=== PATIENT | female | born 1965 | race Caucasian/White ===

== ENCOUNTER 2020-07-10 18:38 | Emergency (ER) | payer SELFPAY ==
--- NOTE | ~2020-07-10 | CT_ITS ---
EXAMINATION: CT lumbar spine wo con DATE: 07/10/2020 23:29 INDICATION: Low back pain TECHNIQUE: Computed tomography (CT) of the lumbar spine was performed without intravenous contrast. A utomated exposure control and iterative reconstruction technique were employed. Exam dose: 915.37 mG y-cm total exam DLP. COMPARISON: None FINDINGS: The left kidney is absent the left renal fossa; history of left nephrectomy with probable l eft adrenalectomy. A small pinpoint mid right renal calculus is noted. The appendix appears normal. There is diverticulosis of the colon. There is a transitional first sacral vertebra. No fracture or bone destruction of the lumbar spine. Lumbar and lumbosacral interspaces appear relati vely well preserved. There is mild degenerative spurring of the lower thoracic spine. There is degenerative change at the apophyseal joints at L5-S1 and S1-S2 but no spondylolysis or spon dylolisthesis.. IMPRESSION: Transitional first sacral vertebra Mild degenerative change of the lower thoracic spine and the apophyseal joints of L5-S1 and S2 Reviewed, dictated and finalized at [facility]. Reviewed, dictated and finalized at [facility].
[2020-07-10 19:11] VITALS: BP 110/77; PULSE 68; RESP 16; TEMP 36.3; O2SAT 96
[2020-07-10 19:34] LABS: Add Urine Microscopic? NO; Appearance Urine Clear (Clear); Bilirubin Urine Negative (Negative); Blood Urine Negative (Negative); Color Urine Straw (Yellow); Glucose Urine UA Negative (Negative); Ketones Urine Negative (Negative); Leukocyte Esterase Ur Negative LEU/UL (Negative); Nitrate Urine Negative (Negative); Protein Urine Negative (Negative); Specific Grav Ur 1.005 (1.001-1.035); Urobilinogen Urine Negative mg/dL (<2.0)
[2020-07-10 19:38] LABS: RBC Urine 0-2 /hpf (0-2); Squamous Epithelial Cell Urine Rare /hpf (Few); WBC Urine 0-3 /hpf
[2020-07-10 21:37] VITALS: BP 125/89; PULSE 75; RESP 18; TEMP 36.6; O2SAT 97
[2020-07-10 21:43] VITALS: BP 125/89; PULSE 72; RESP 18; TEMP 36.6; O2SAT 97
--- NOTE | 2020-07-10 21:45 | PC.NURSE ---
Pt presents to ED with complaints of right flank pain that is rated 7/10 at this time. Pt denies tx pain captain cannery tender. Pt states she has hx of left nephrectomy due to CA. Pt states pain has been persistent for the last week. States I came in tonight because I was in the shower about to shave my legs and when I bent over I thought I was going to lose my mind . Denies urinary discomfort. Pt alert and oriented x4 and breathing is even and unlabored. EDMD presented to bedside. Call button and personal items within reach. Pt advised to press call button for assistance.
--- NOTE | 2020-07-10 21:46 | ED.BACK ---
HPI - Back Pain/Injury General Chief Complaint: Back Pain/Injury Stated Complaint: back pain Time Seen by Provider: 07/10/20 21:40 History of Present Illness HPI Narrative: Low back pain for the past week. Today while in the shower she bent over to shave her legs and when she stood back up the pain became severe. It radiates down the left leg. No weakness, numbness, dysuria, hematuria, incontinence, fever. She has a history of renal cancer and only has 1 kidney. Related Data Home Medications Medication Instructions Recorded Confirmed atorvastatin 10 mg tablet 10 mg PO DAILY 04/02/19 04/02/19 pediatric multivitamin 1 tablet PO DAILY 04/02/19 04/02/19 Allergies Allergy/AdvReac Type Severity Reaction Status Date / Time Sulfa (Sulfonamide Allergy Unknown Unknown Verified 04/02/19 11:12 Antibiotics) Review of Systems Review of Systems: All systems reviewed & are unremarkable except as noted in HPI and below Constitutional: Constitutional: Denies chills, Denies fever(s) and Denies weakness Eyes: Eyes: Reports no additional eye complaints ENT: Reports system reviewed and no additional complaints, except as documented Cardiovascular: Cardiovascular: Denies chest pain Respiratory: Respiratory: Denies dyspnea Gastrointestinal: Gastrointestinal: Denies abdominal pain, Reports nausea and Denies vomiting Genitourinary: Genitourinary: Denies hematuria, Denies nocturia and Denies dysuria Musculoskeletal: Musculoskeletal: Reports back pain Neurologic: Denies dizziness, Denies numbness and Denies weakness PMFSH Past Medical History Medical History GERD (gastroesophageal reflux disease) Hyperlipidemia due to dietary fat intake Renal cancer Surgical History Surgical History H/O: hysterectomy Family History Family History Mother Hypertension Family history of diabetes mellitus in first degree relative Diabetes mellitus Father Family history of hypercholesterolemia Grandparent Family history of alcoholism Sibling Family history of liver disease Social History Social History Smoking status: Never smoker Alcohol intake: current Gender identity (if verbalized by the patient): Female Exam Const: General: healthy appearing, no acute distress and alert Orientation/consciousness: patient oriented x3 HENMT: Head: normal to inspection Neck: Neck: normal visual inspection Resp: Effort & Inspection: normal respiratory effort Auscultation: clear to auscultation bilaterally Cardio: Rate: regular rate Rhythm: regular rhythm GI: GI Palp: Yes Soft to palpation and No Tenderness to palpation present (GI) Back/Spine/Pelvis: Other: full ROM Neuro: General: patient oriented x3, moves all extremities and no focal motor deficits Speech: normal speech Extrem: General: normal to inspection and no edema Course Vital Signs Vital signs: Vital Signs Temperature 36.3 C L 07/10/20 19:11 Pulse Rate 68 07/10/20 19:11 Respiratory Rate 16 07/10/20 19:11 Blood Pressure 110/77 07/10/20 19:11 Pulse Oximetry 96 07/10/20 19:11 Temperature 36.7 C 07/11/20 00:06 Pulse Rate 57 L 07/11/20 00:06 Respiratory Rate 13 07/11/20 00:06 Blood Pressure 119/87 07/11/20 00:06 Pulse Oximetry 98 07/11/20 00:06 MDM - Back Pain/Injury MDM Narrative Medical decision making narrative: Given cancer history she is at increased risk of serious pathology. CT does not show fracture or any other worrisome findings. Patient declining most medications. I will prescribe a mild muscle relaxer. Differential Diagnosis Differential diagnosis: Likely lumbar radiculopathy, sciatica, strain of lumbar region and pyelonephritis Medical Records Attestation: I reviewed the patient
[2020-07-10] MEDS: ACETAMINOPHEN 500 MG TABLET 1000 MG PO (22:45)
--- NOTE | 2020-07-10 22:45 | PC.NURSE ---
pt to ct via cart and is now back in room resting on cart in its lowest position with call button and personal items within reach.
[2020-07-11] MEDS: CYCLOBENZAPRINE HCL 10 MG TABLET PO (00:01)
--- NOTE | 2020-07-11 00:02 | PC.NURSE ---
Pt to ct via cart.
--- NOTE | 2020-07-11 00:03 | PC.NURSE ---
Pt resting on cart in its lowest position with call button and personal items within reach. Pt has no complaints or concerns at this time and states pain has improved. Pt remains alert and oriented x4 and breathing is even and unlabored. Call button and personal items within reach.
[2020-07-11 00:04] VITALS: BP 119/87; PULSE 57; RESP 13; TEMP 36.6; O2SAT 98
[2020-07-11 00:06] VITALS: BP 119/87; PULSE 57; RESP 13; TEMP 36.7; O2SAT 98
== END 2020-07-11 00:23 | disposition home or self-care (01) ==
PROVIDERS: Emergency Medicine; Emergency Provider Emergency Medicine; PCP Internal Medicine
DX: S39.012A Strain of muscle, fascia and tendon of lower back, initial encounter (principal); Z90.5 Acquired absence of kidney; K21.9 Gastro-esophageal reflux disease without esophagitis; E78.5 Hyperlipidemia, unspecified; Z85.528 Personal history of other malignant neoplasm of kidney; X50.9XXA Other and unspecified overexertion or strenuous movements or postures, initial encounter
CPT/HCPCS: 72131; 81003; 99284; A9270; J3360

== ENCOUNTER → 2022-06-01 07:57 | Outpatient (CLI) | payer OTHER, SELFPAY ==
--- NOTE | ~2022-06-01 | MMUS_ITS ---
EXAMINATION: MM diagnostic kimberly BI w tunde, US breast RT limited HISTORY: Palpable lump in the upper inner quadrant of the right breast TECHNIQUE: Craniocaudal, mediolateral, and mediolateral oblique 3-D tomosynthesis images of the az ts were performed and synthetic 2-D images were generated. CAD analysis was submitted and interpreted . High resolution limited right breast ultrasound was performed. COMPARISON: 08/08/2012, 08/01/2012 BREAST PARENCHYMAL COMPOSITION: There are scattered areas of fibroglandular density. FINDINGS: MAMMOGRAPHIC FINDINGS: No suspicious mass, calcification, or architectural distortion are identified in either breast to sug gest malignancy. There has been no suspicious interval change. No mammographic correlate is identifie d for the reported palpable abnormality of concern of the right breast. ULTRASOUND: There is no evidence of focal abnormal solid or cystic mass in the vicinity of the reported palpable abnormality of the right breast. IMPRESSION: 1. No specific mammographic or sonographic correlate is identified for the reported palpable abnormal ity of concern in the right breast. Further evaluation at this time should be based on clinical asses sment. Continued follow-up physical examination is recommended. 2. Recommend routine screening mammography in one year. BI-RADS Category 1: Negative Reviewed, dictated and finalized at [facility]. ANICAL FITTER IMPRESSION: 1. No specific mammographic or sonographic correlate is identified for the repo rted palpable abnormality of concern in the right breast. Further evaluation at this time should be based on clinical assessment. Continued follow-up physical examination is recommended. 2. Recommend routine screening mammography in one year. BI-RADS Category 1: Negative
== END ==
PROVIDERS: PCP Internal Medicine; Visit Provider Nurse Practitioner
DX: N63.12 Unspecified lump in the right breast, upper inner quadrant (principal)
CPT/HCPCS: 76642; 77062; 77066; G0279

== ENCOUNTER 2023-03-02 08:37 | Emergency (ER) | payer SELFPAY ==
[2023-03-02] VITALS (15 sets, daily range): BP systolic 105–122; BP diastolic 64–82; PULSE 50–75; RESP 10–23; TEMP 36.8; O2SAT 96–100
--- NOTE | ~2023-03-02 | XR_ITS ---
EXAMINATION: XR chest 1V portable 03/02/2023 09:07 INDICATION: Sharp chest pain PROCEDURE: 2 view chest COMPARISON: 06/04/2018 FINDINGS: The lungs are clear. The cardiomediastinal silhouette is within normal limits. There are no pleural effusions. There is no pneumothorax suspected. IMPRESSION: 1: NO ACUTE CARDIOPULMONARY DISEASE. Reviewed, dictated and finalized at location [facility]. INED MINISTER
--- NOTE | 2023-03-02 08:48 | ECG_ITS ---
Measurements Intervals [place] Rate: 63 P: -13 RI: 142 QRS: 28 QRSD: 96 T: 21 QT: 396 QTc: 408 Interpretive Statements SINUS RHYTHM WITH OCCASIONAL VENTRICULAR PREMATURE COMPLEXES COMPARED TO ECG 06/04/2018 19:11:07 NO SIGNIFICANT CHANGES Electronically Signed On 03-02-2023 18:54:08 HOT PLATE PRESS OPERATOR by Pilar Romero M.D.
--- NOTE | 2023-03-02 08:51 | ED.CHESTPAIN ---
HPI - Chest Pain General Chief Complaint: Chest Pain Stated Complaint: CP Time Seen by Provider: 03/02/23 08:41 History of Present Illness HPI narrative: 57-year-old female presenting ED the for evaluation of epigastric pain. The patient states that she has had some heart palpitations over the last few days. Patient woke up this morning she had onset epigastric pain that radiated to her left upper quadrant. Patient reports that the pain did radiate to her left arm. Patient called EMS for this pain. In route she was treated with Zofran and aspirin. Patient reports that the pain is significantly improved upon arrival to the ED. patient gestures at her epigastrium as the site of the pain. Patient denies any current chest pain or shortness of breath. Patient denies any prior history of hypertension, high cholesterol or diabetes. Patient states she has never had a heart attack and does not recall having a stress test. Related Data Allergies Allergy/AdvReac Type Severity Reaction Status Date / Time Sulfa (Sulfonamide Allergy Unknown Unknown Verified 03/02/23 08:48 Antibiotics) Review of Systems Review of Systems: All systems reviewed & are unremarkable except as noted in HPI and below PMFSH Past Medical History Medical History (Updated 03/02/23 @ 12:56 by Keith Davis MD) GERD (gastroesophageal reflux disease) Hyperlipidemia due to dietary fat intake Renal cancer Urinary tract infection Surgical History Surgical History H/O kidney removal H/O: hysterectomy Family History Family History Mother Hypertension Family history of diabetes mellitus in first degree relative Diabetes mellitus Father Family history of hypercholesterolemia Grandparent Family history of alcoholism Sibling Family history of liver disease Social History Social History (Updated 06/09/22 @ 11:07 by Jennifer Ocampo MA) Smoking status: Never smoker Alcohol intake: current Lack of Transportation: No Lack of Food: Never True Current Housing: I Have Housing Concerned About Future Housing: No Difficulty Paying Gas/Electric Bills: No Difficulty Paying for Meds: No Currently Unemployed: No Education: High School Diploma/GED Difficulty w/ Childcare or Family Care: No Gender identity (if verbalized by the patient): Female Exam Narrative: APPEARANCE: Well appearing, no pain, no distress, well-nourished. HEAD: normocephalic, atraumatic. EYES: PERRLA/EOMI, conjunctivae clear. NOSE: Normal no drainage EARS:TMS clear with good light reflex. THROAT: Pharynx clear, no exudate. NECK: Supple. No adenopathy, no masses. RESPIRATORY: Airway patent, respirations nonlabored. Clear to auscultation bilaterally, no rales, rhonchi, wheezing. CARDIOVASCULAR: Regular rate and rhythm without murmurs rubs or gallops. ABDOMINAL: soft, nondistended, normal bowel sounds, some epigastric tenderness to palpation MUSCULOSKELETAL: Moves all extremities. Strength/ROM intact, No edema, No calf tenderness. NEURO: Alert. Cranial nerves II through XII intact. Grossly intact SKIN: Warm, dry. Normal Color Course Course Emergency Course: 57-year-old female presenting to the ED for evaluation of epigastric and chest pain. patient is afebrile with no leukocytosis and a stable hemoglobin. Patient had a normal D-dimer and negative serial troponins. Lipase was not elevated. Chest x-ray shows no acute cardiopulmonary abnormality. Serial EKG showed no evidence of acute STEMI. patient reports that her symptoms were resolved after the GI cocktail. Patient was encouraged to have close follow-up with GI along with her primary care physician for additional outpatient cardiac testing. All questions and concerns were addressed patient was well-appearing at time of discharge. Suspected GI etiology for ACS. Vital Signs Vital signs:
[2023-03-02 09:03] LABS: Basophils Percent Auto 0.5 % (0.2-1.2); Eosinophils Absolute Auto 0.1 K/mm3 (0-0.3); Eosinophils Percent Auto 1.8 % (0-4.4); Hematocrit 42.3 % (37.0-47.0); Hemoglobin 14.3 g/dL (12.0-15.0); Immature Granulocyte Absolute 0.02 K/mm3 (0.00-0.031); Immature Granulocyte Percent A 0.3 % (0-0.5); Lymphocytes Absolute Auto 1.94 K/mm3 (0.9-3.2); Lymphocytes Percent Auto 29.8 % (18.3-44.2); Mean Corpuscular HGB Conc 33.8 g/dl (32-36); Mean Corpuscular Hemoglobin 31.7 pg (26-34); Mean Corpuscular Volume 93.8 fl (80-100); Mean Platelet Volume 9.4 fl (7.4-10.4); Monocytes Absolute Auto 0.5 K/mm3 (0.1-0.6); Monocytes Percent Auto 7.4 % (2.6-8.5); Neutrophils Absolute Auto 3.9 K/mm3 (1.3-6.7); Neutrophils Percent Auto 60.2 % (45.5-73.1); Platelet Count Result 224 k/mm3 (150-375); Red Blood Count 4.51 M/mm3 (4.2-5.4); Red Cell Distribution Width 12.5 % (11.5-14.5); White Blood Count 6.5 K/mm3 (4.5-10.0)
[2023-03-02 09:11] LABS: Alanine Aminotransferase 20 U/L (6-35); Albumin Level 4.4 g/dL (3.5-5.1); Alkaline Phosphatase 71 U/L (38-126); Anion Gap 7 mmol/L (8-16); Aspartate Amino Transferase 28 U/L (14-36); Bilirubin,Total 1.1 mg/dL (0.2-1.3); Blood Urea Nitrogen 22 mg/dL (7-17); Calcium 11.1 mg/dL (8.4-10.2); Carbon Dioxide 22 mmol/L (22-30); Chloride 107 mmol/L (98-107); Estimated CRCL calculation 70 ml/min; Estimated Glomerular Filt Rate > 60; Glucose 104 mg/dL (65-110); Lipase 65 U/L (23-300); Potassium 4.1 mmol/L (3.4-5.0); Sodium 136 mmol/L (137-145)
[2023-03-02 09:17] LABS: INR 0.9; Prothrombin Time 12.5 Seconds (11.1-14.7)
[2023-03-02 09:18] LABS: Partial Thromboplastin Time 27.1 SECONDS (22.3-36.8)
[2023-03-02 09:23] LABS: Troponin I < 0.012 ng/mL (0.000-0.034)
[2023-03-02 09:31] LABS: D Dimer 0.47 ug/mL (<0.48)
[2023-03-02] MEDS: BELLADONNA ALK/PHENOB ELIX 10 ML, MAG HYDROX/ALUMINUM HYD/SIMETH 30 ML, LIDOCAINE HCL 2... PO (10:00)
--- NOTE | 2023-03-02 12:05 | ECG_ITS ---
Measurements Intervals [place] Rate: 56 P: -11 [place]: 149 QRS: 21 QRSD: 94 T: 24 QT: 406 QTc: 393 Interpretive Statements SINUS BRADYCARDIA WITH SINUS ARRHYTHMIA COMPARED TO ECG 03/02/2023 08:44:28 SINUS BRADYCARDIA NOW PRESENT SINUS ARRHYTHMIA NOW PRESENT Electronically Signed On 03-02-2023 19:15:46 PETROLEUM REFINERY WORKER by Pilar Romero M.D.
[2023-03-02 12:36] LABS: Troponin I < 0.012 ng/mL (0.000-0.034)
== END 2023-03-02 13:17 | disposition home or self-care (01) ==
PROVIDERS: Emergency Provider Emergency Medicine; PCP Internal Medicine
DX: R10.13 Epigastric pain (principal); J32.9 Chronic sinusitis, unspecified; E78.5 Hyperlipidemia, unspecified; K21.9 Gastro-esophageal reflux disease without esophagitis; Z85.528 Personal history of other malignant neoplasm of kidney; Z87.440 Personal history of urinary (tract) infections; Z90.710 Acquired absence of both cervix and uterus; Z90.5 Acquired absence of kidney; I49.3 Ventricular premature depolarization
CPT/HCPCS: 36415; 71045; 80053; 83690; 84484; 85025; 85380; 85610; 85730; 93005; 99284; A9270

== ENCOUNTER 2023-05-24 08:06 | Outpatient (CLI) | payer SELFPAY ==
--- NOTE | ~2023-05-24 | XR_ITS ---
Right Knee Technique: AP, lateral, and sunrise views were obtained. Clinical History: Pain Findings: No fracture or dislocation is seen. There is medial joint line osteophyte formation. There is minimal spurring at the lateral joint line and patella. Soft tissues are unremarkable. No joint ef fusion is seen. Impression: Mild tricompartment degenerative change, as detailed above, worst in the medial compartment. Reviewed, dictated and finalized at location [facility]. ER ON Impression: Mild tricompartment degenerative change, as detailed above, worst in the medial compartment.
--- NOTE | ~2023-05-24 | XR_ITS ---
Lumbosacral Spine: AP and lateral views Clinical History: Pain Findings: The normal lordotic curve is maintained. The vertebral bodies and posterior elements are i ntact. The intervertebral disc spaces are preserved. There are extensive facet joint degenerative ch anges, worst at L4-L5 and L5-S1. The sacroiliac joints are normally outlined. Impression: Extensive facet arthropathy, worst at L4-L5 and L5-S1. Reviewed, dictated and finalized at location . STICS MANAGER Impression: Extensive facet arthropathy, worst at L4-L5 and L5-S1.
[2023-05-24 09:31] LABS: Basophils Percent Auto 0.5 % (0.2-1.2); Eosinophils Absolute Auto 0.2 K/mm3 (0-0.3); Eosinophils Percent Auto 3.1 % (0-4.4); Hematocrit 42.6 % (37.0-47.0); Immature Granulocyte Absolute 0.03 K/mm3 (0.00-0.031); Immature Granulocyte Percent A 0.4 % (0-0.5); Lymphocytes Absolute Auto 2.54 K/mm3 (0.9-3.2); Lymphocytes Percent Auto 33.9 % (18.3-44.2); Mean Corpuscular HGB Conc 32.9 g/dl (32-36); Mean Corpuscular Hemoglobin 30.9 pg (26-34); Mean Platelet Volume 9.8 fl (7.4-10.4); Monocytes Absolute Auto 0.5 K/mm3 (0.1-0.6); Monocytes Percent Auto 6.1 % (2.6-8.5); Neutrophils Absolute Auto 4.2 K/mm3 (1.3-6.7); Platelet Count Result 243 k/mm3 (150-375); Red Blood Count 4.53 M/mm3 (4.2-5.4); Red Cell Distribution Width 12.7 % (11.5-14.5); White Blood Count 7.5 K/mm3 (4.5-10.0)
[2023-05-24 09:43] LABS: Alanine Aminotransferase 18 U/L (6-35); Albumin Level 4.3 g/dL (3.5-5.1); Alkaline Phosphatase 74 U/L (38-126); Anion Gap 2 mmol/L (8-16); Aspartate Amino Transferase 25 U/L (14-36); Bilirubin,Total 0.7 mg/dL (0.2-1.3); Blood Urea Nitrogen 22 mg/dL (7-17); Calcium 10.8 mg/dL (8.4-10.2); Carbon Dioxide 26 mmol/L (22-30); Chloride 108 mmol/L (98-107); Cholesterol 241 mg/dL (0-200); Estimated Glomerular Filt Rate > 60; Glucose 96 mg/dL (65-110); HDL Direct 55 mg/dL; Potassium 4.4 mmol/L (3.4-5.0); Sodium 136 mmol/L (137-145); Triglycerides 196 mg/dL (<150)
[2023-05-24 09:54] LABS: LDL Cholesterol Direct 122 mg/dL
[2023-05-24 13:38] LABS: Vitamin D 25 Hydroxy 33.4 ng/mL
[2023-05-26 20:54] LABS: Ionized Calcium 5.6 mg/dL (4.7-5.5)
== END 2023-05-24 08:07 | disposition home or self-care (01) ==
PROVIDERS: PCP Internal Medicine; Visit Provider Clinical Nurse Specialist
DX: M47.816 Spondylosis without myelopathy or radiculopathy, lumbar region (principal); M47.817 Spondylosis without myelopathy or radiculopathy, lumbosacral region; M17.11 Unilateral primary osteoarthritis, right knee; E78.49 Other hyperlipidemia; E83.52 Hypercalcemia; F41.9 Anxiety disorder, unspecified; Z13.228 Encounter for screening for other metabolic disorders
CPT/HCPCS: 36415; 72100; 73562; 80053; 80061; 82306; 82330; 83970; 84443; 85025

== ENCOUNTER 2023-05-30 11:14 | Emergency (ER) | payer SELFPAY ==
--- NOTE | ~2023-05-30 | XR_ITS ---
EXAMINATION: XR shoulder RT min 2V INDICATION: Right shoulder pain TECHNIQUE: Four views of the right shoulder are submitted. COMPARISON: 04/02/2019 FINDINGS: Normal alignment. No fracture. Glenohumeral and acromioclavicular joint spaces are normal. Soft tissues are unremarkable. IMPRESSION: 1. No acute osseous abnormality. Reviewed, dictated and finalized at location [facility]. CTOR SERVICE
[2023-05-30 11:29] VITALS: BP 126/74; PULSE 55; RESP 20; TEMP 36.1; O2SAT 100
--- NOTE | 2023-05-30 13:49 | ED.UPPEXIN ---
HPI - Extremity Injury (Upper) General Chief Complaint: Extremity Injury, Upper Stated Complaint: fall, arm pain Time Seen by Provider: 05/30/23 12:05 History of Present Illness HPI narrative: 57-year-old female presenting after a fall. Patient states that she tripped on a ledge on a sidewalk and fell to her right side. She landed directly on her right shoulder. States that she had immediate pain and she is unable to lift the right arm. Can not abduct secondary to pain. Denies elbow or wrist pain. Can use her hand normally. No further complaints or injuries. Related Data Allergies Allergy/AdvReac Type Severity Reaction Status Date / Time Sulfa (Sulfonamide Allergy Unknown Unknown Verified 05/30/23 11:15 Antibiotics) Review of Systems Review of Systems: All systems reviewed & are unremarkable except as noted in HPI and below PMFSH Past Medical History Medical History GERD (gastroesophageal reflux disease) Hyperlipidemia due to dietary fat intake Renal cancer Urinary tract infection Surgical History Surgical History H/O kidney removal H/O: hysterectomy Family History Family History Mother Hypertension Family history of diabetes mellitus in first degree relative Diabetes mellitus Father Family history of hypercholesterolemia Grandparent Family history of alcoholism Sibling Family history of liver disease Social History Social History Smoking status: Never smoker Alcohol intake: current Substance use type: does not use Lack of Transportation: No Lack of Food: Never True Current Housing: I Have Housing Concerned About Future Housing: No Difficulty Paying Gas/Electric Bills: No Difficulty Paying for Meds: No Currently Unemployed: No Education: High School Diploma/GED Difficulty w/ Childcare or Family Care: No Gender identity (if verbalized by the patient): Female Exam Narrative: GENERAL: Well-appearing, in no acute distress, pleasant cooperative HEAD: Normocephalic, atraumatic. EYES: PERRLA and EOMI. ENT: Grossly unremarkable NECK: Supple. CHEST: No respiratory distress. HEART: Regular rate and rhythm EXTREMITIES: unable to abduct R shoulder 2/2 pain; tender especially anterior R shoulder; distal ROM intact, pulses intact SKIN: Warm, dry, no rash. NEURO: No focal deficits. Alert and oriented x3. PSYCH: Normal mood and affect. Course Vital Signs Vital signs: Vital Signs Temperature 97.0 F L 05/30/23 11:29 Pulse Rate 55 L 05/30/23 11:29 Respiratory Rate 20 05/30/23 11:29 Blood Pressure 126/74 05/30/23 11:29 Pulse Oximetry 100 05/30/23 11:29 Oxygen Delivery Room Air 05/30/23 11:29 Temperature 97.0 F L 05/30/23 11:29 Pulse Rate 55 L 05/30/23 11:29 Respiratory Rate 20 05/30/23 11:29 Blood Pressure 126/74 05/30/23 11:29 Pulse Oximetry 100 05/30/23 11:29 Oxygen Delivery Room Air 05/30/23 11:29 MDM - Extremity Injury (Upper) MDM Narrative Medical decision making narrative: 57-year-old female presenting with right shoulder pain after a fall. Vital stable. Exam remarkable for the above. X-ray show no acute osseous abnormalities. Suspect ligamentous injury given the limited ROM of the right shoulder secondary to pain. Tylenol for pain, will provide sling and orthopedic follow-up. Also recommend PCP follow-up. Appropriate return precautions given. Patient is agreeable this plan. Discharged in stable condition. Differential Diagnosis Differential diagnosis: Likely dislocation of shoulder, fracture of humerus, fracture of clavicle and other (Rotator cuff injury) Medical Records Attestation: I reviewed the patient's medical records. Imaging Data Radiologist's impression: ITS Impr
[2023-05-30] MEDS: ACETAMINOPHEN 500 MG TABLET 1000 MG PO (13:59)
== END 2023-05-30 14:01 | disposition home or self-care (01) ==
PROVIDERS: Emergency Provider Emergency Medicine
DX: S43.401A Unspecified sprain of right shoulder joint, initial encounter (principal); E78.5 Hyperlipidemia, unspecified; K21.9 Gastro-esophageal reflux disease without esophagitis; Z87.440 Personal history of urinary (tract) infections; Z85.528 Personal history of other malignant neoplasm of kidney; Z90.5 Acquired absence of kidney; Z90.710 Acquired absence of both cervix and uterus; W01.0XXA Fall on same level from slipping, tripping and stumbling without subsequent striking against object, initial encounter
CPT/HCPCS: 73030; 99283; A4565; A9270

== ENCOUNTER 2024-09-01 09:22 | Emergency (ER) | payer SELFPAY ==
[2024-09-01] VITALS (14 sets, daily range): BP systolic 117–150; BP diastolic 67–94; PULSE 55–67; RESP 12–19; TEMP 36.2; O2SAT 95–99
--- NOTE | ~2024-09-01 | CT_ITS ---
CT of the Abdomen and Pelvis: Indication: Abdominal pain Technique: 2.5 mm axial scans were obtained through the abdomen and pelvis following intravenous adm inistration of 100 cc of Omnipaque 350. Dose reduction technique was used on this scan by utilizing a utomated exposure control and iterative reconstruction technique. The dose-length product (DLP) was 7 59.03 mGy-cm. Findings: Scans through the lung bases are unremarkable. The liver, spleen, pancreas, gallbladder, right adrenal gland, and right kidney are within normal ramos its. Status post left nephrectomy, possible left adrenalectomy. No evidence of aortic aneurysm. No l ymphadenopathy. No bowel obstruction or bowel wall thickening. There is no evidence to suggest acute appendicitis. Fo es umbilical hernia contains a loop of small bowel. Images through the pelvis were performed. Urinary bladder unremarkable. Status post hysterectomy. No pelvic mass seen. No ascites. Impression: No acute abnormality. No evidence for recurrent malignancy or metastatic disease. Focal umbilical hernia contains a loop of small bowel. Status post left nephrectomy, suspected left adrenalectomy, and hysterectomy. Reviewed, dictated and finalized at location . Impression: No acute abnormality. No evidence for recurrent malignancy or metastatic diseas e. Focal umbilical hernia contains a loop of small bowel. Status post left nephrectomy, suspected left adrenalectomy, and hysterectomy.
--- NOTE | 2024-09-01 09:27 | ECG_ITS ---
Test Date: 2024-09-01 09:36:24 Measurements Intervals [place] Rate: 59 P: 4 NM: 155 QRS: 26 QRSD: 97 T: 18 QT: 416 QTc: 414 Interpretive Statements SINUS BRADYCARDIA BASELINE ARTIFACT- I, II, III, AVR, AVL, AVF BORDERLINE ECG No previous ECG available for comparison Electronically Signed On 09-01-2024 12:34:33 CDT by Obinna Asher D.O.
--- OUTSIDE RECORDS SUMMARY | 2024-09-01 09:29 | XMS_ITS | Data Portability ---
Author Organization [facility] [place] Address [address] [place] [address] [place] [address] Care Team Providers Care Machinist Outside Name Role Phone NELLIEEMILY SIDHU Primary Care Provider [phone] Assessment No assessment recorded. Plan of Treatment Reminders Order Date Submit Date Provider Last Modified By Organization Details Last Modified Time Details Appointments None recorded . Lab None recorded . Referral None recorded . Procedures None recorded . Surgeries None recorded . Imaging MAMMO, diagnost ic, digital, bilatera l 2022 023 [facility], [address], [place], [address], 11:10:22 US, breast, unilater al, complete 2022 023 vschroedter [facility], [address], [place], [address], 3 13:00:21 Medication Orders None recorded . Patient TargetsNo targets recorded. Patient InstructionsNo instructions recorded. Reason for Referral None Reported. Results Created Date Observation Date Name Description Value Unit Range Abnormal Flag Note LastModifiedBy Organization Detail LastModifiedTime 06/02/1906/01/2022 MAMMO , diagn ostic , digit al, bilat eral No observ ation record ed. [email or web address] [facility] [address], [place], [address], 06/06/2022 11:10:22 Result Notes None recorded. Procedures Surgical History Date Name Laterality Status Provider Name and Address Organization Details Recorded Time Partial Hysterectomy completed Anamika Martinez [facility] 05/12/2022 09:40:32 kidney excision completed Dasia garcía, [facility] [address], [place], [address], [facility] 05/12/2022 10:12:02 Imaging Results None recorded. Procedure Notes None recorded. Medical Equipment None Reported. Allergies Allergen ID Allergen Name Allergen Category Reaction Reaction Severity Criticality Documentation Date Start Date Code Code System Note Provider Name and Address Organization Details Recorded Time Substance with sulfonami de structure and antibacte rial mechanism of action (substanc e) medicatio n Not available Not available Not available 05/12/2022 [id number] SNOMED Anamika lew [facility] 3 09:40:48 Medications Name Sig Start Date Stop Date Status Note LastModified by Organization Details LastModified Time amoxicillin 875 mg-potassium clavulanate 125 mg tablet TAKE 1 TABLET BY MOUTH EVERY 12 HOURS 05/12 completed Not Available Not Available Not Available Vitals Date Recorded Body height Body mass index (BMI) Body weight Systolic blood pressure Diastolic blood pressure Provider Name and Address Organization Details Last Updated DateTime 05/12/2022 167.64 cm 31.8 kg/m2 37966.7 g 113 mm[Hg] 74 mm[Hg] Anamika Martinez [facility] 3 09:40:14 Social History Question Answer Notes LastModified by Organizat ion Details LastModified Time Are You Blind Or Do You Have Difficulty Seeing? Yes Information n ot available 05/12/2022 What Is Your Level Of Caffeine Consumption? Occasional Information not available 05/12/2022 How Much Tobacco Do You Chew? None Information not available 05/12/2022 In The 14 Days Before Symptom Onset, Have You Had Close Contact With A Laboratory-confirm ed COVID-19 While That Case Was Ill? No Information n ot available 05/12/2022 In The 14 Days Before Symptom Onset, Have You Had Close Contact With A Person Who Is Under Investigation For COVID-19 While That Person Was Ill? No Information not available 05/12/2022 Have You Been To An Area Known To Be High Risk For COVID-19? No Information not available 05/12/2022 Are You Deaf Or Do You Have Serious Difficulty Hearing? No Information not available 05/12/2022 What Is The Highest Grade Or Level Of School You Have Completed Or The Highest Degree You Have Received? [id number] Information not available 05/12/2022 Are There Any Guns Present In Your Home? No Information not available 05/12/2022 Do You Use Protection During Sex? Always Information not available 05/12/2022 Do You Use Your Seat Belt Or Car Seat Routinely? Yes Information not available 05/12/2022 Do You Have Smoke And Carbon Monoxide Detectors In Your Home? Yes Information not available 05/12/2022 At What Age Did You Start Smoking Tobacco? 18 Information not available 05/12/2022 How Much Tobacco Do You Smoke? 1 PPD Information not available 05/12/2022 Do You Use Sunscreen Routinely? Yes Information not available 05/12/2022 How Many Years Have You Smoked Tobacco? 38 Information not available 05/12/2022 Have You Used IV Drugs? No Information not available 05/12/2022 Do You Have Difficulty Walking Or Climbing Stairs? No Information not available 05/12/2022 Sex: Unknown Functional Status Question Answer Note LastModified by Organizat ion Details LastModified Time Do you use any illicit or recreational drugs? No Information not available 05/12/2022 What is your level of alcohol consumption? None Information not available 05/12/2022 Are you able to walk? YESWOREST Information not available 05/12/2022 Are you able to care for yourself? 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 No Information not available 05/12/2022 What is your exercise level? Heavy Information not available 05/12/2022 Mental Status Question Answer Note LastModified by Organization D etails LastModified Time Do you feel stressed (tense, restless, nervous, or anxious, or unable to sleep at night)? [id number] Information not available 05/12/2022 Family History Relationship Description Onset Age of this Age Resolved Age Notes LastModified by Organization Details LastModified Time Unspecified Relation Family history unknown [email or web address] Not available 04/27 09:40:18 Mother Diabetes mellitus [email or web address] Not available 04/27 10:34:34 Mother Essential hypertension vschroedter Not available 0 05/12/2022 10:35:03 Mother Disorder of thyroid gland vschroedter Not available 04/27 10:35:34 Father Diabetes mellitus vschroedter Not available 04/27 10:34:34 Father Hyperlipidem ia vschroedter Not available 04/27 10:34:51 Paternal Grandfather Malignant neoplasm of lung vschroedter Not available 04/27 10:35:20 Paternal Uncle Malignant neoplasm of lung vschroedter Not available 04/27 10:35:20 Medical History Condition Response Breast Problem Y Anemia Y Arthritis Y Blood Transfusion Y High Cholesterol Y Cancer Y Gynecological History Statement/Question Response Abnormal Pap N On BCP's at Conception? N N Was last menstrual period normal N STIs/STDs N HPV Vaccine N Duration of Flow (days) 9 Current Control Method Hysterectom y Age at First Child 20 If Post Menopausal, Age at Menopause 55 Frequency of Cycle (Q days) 21 Sexually Active? N Age of first menstrual cycle 15 Date of Last Pap Smear Sexual Problems? Y LMP Unknown N Obstetrics History GPAL:G 3 P 0 0 0 3 Type Value Living 3 Total 3 Past Encounters Encounter ID Performer Location Encounter Start Date Encounter Closed Date Diagnosis/Indication Diagnosis SNOMED-CT Code Diagnosis ICD10 Code Diagnosis Note [id number] ZENAIDA Crook [address] [address] 05/12/2022 09:17:30 05/12/2022 10:24:50 Mass of right breast [id number] 1924020 N63.10 Right breast mass, located at 4 o'clock, 3cm from the nipple, about 1cm in sizeDiagno stic bilateral mammogram with right breast u/s orderedEnc ouraged her to schedule thisWill update patient with imaging results when available Time spent in visit is a total of 15 mins with at least 50% of visit consisting of counseling and review of plan of care. Health Concerns Section Related Observation LastModified by Organization Detai ls LastModified Time None Recorded Concern Status LastModified by Organization Details LastModified Time None Recorded Advance Directives Directive None Recorded Payers Encounter Date Sequence Insurance Name Policy Number Policy Casas Covered Member ID Casas Member ID Guarantor Name 05/12/2022 [facility] Dayna Bourne [id number] Dayna Bourne Notes Date Note Type Note Provider Name and Address Organization Details Recorded Time 05/12/2022 text/html 56yoPresents for evaluation of right breast lumpNoticed lump a few months ago, slightly tender to touchLast mammogram many years agoNo fam or personal hx of BC or ovarian cancerHysterectomy for AUB/non-cancerous indications 15 years ago. Ovaries remain. No hx of abnormal paps prior to hystMedical hx : Left renal cancer, with removal of left kidney 5 years ago (has since been released from oncology per patient), anemia, arthritis ZENAIDA Crook [address], [place], [address], [facility] 05/12/2022 10:14:17 OBGyn Episode Ob Episode Information Episode Created Date Number of Fetuses Patient Bloodtype Patient rh Status Prepregnancy Weight lbs Domestic Partner Domestic Partner Phone Father Name Human Resources Executive Status 05/12/19 23 1 CLOSED Fetus Data First Name Last Name Admitted to NICU Weight (g) Sex Living Outcome Pediatric Complications Fetus ID Race Codes Race Delivery Type F Full Term [id number] Repeat João Calculation Initial João Date Initial Exam Date Initial Exam Provider Initial Ultrasound Date Last Menstrual Period Date Ultra Sound Weeks Gestation 0 Eighteen To Twenty Week João Update Ultra Sound Date Fundal Height At Umbil Quickening Date Ultra Sound Latest Weeks Gestation Final João Confirmed By Final João Confirmed Date Final João Date Ultra Sound Latest Days Gestation 0 0 Menstrual History Last Menstrual Date Menses Monthly On Bcp Conception Prior Menses Frequency Hcg Plus Date Menarche Onset Age Delivery Information Delivery Date Delivery Type Labor Anesthesia Weeks Gestation Incision Type Labor Labor Length Hrs Delivered By Post Complications Tubal Sterilization Discharge Date Comments 5 40 Discharge Information Feeding Method Contraceptive Method Maternal HG B and HCT Levels Ob Episode Information Episode Created Date Number of Fetuses Patient Bloodtype Patient rh Status Prepregnancy Weight lbs Domestic Partner Domestic Partner Phone Father Name Human Resources Executive Status 05/12/19 23 1 CLOSED Fetus Data First Name Last Name Admitted to NICU Weight (g) Sex Living Outcome Pediatric Complications Fetus ID Race Codes Race Delivery Type 3175.14 4 Full Term [id number] Primary João Calculation Initial João Date Initial Exam Date Initial Exam Provider Initial Ultrasound Date Last Menstrual Period Date Ultra Sound Weeks Gestation 0 Eighteen To Twenty Week João Update Ultra Sound Date Fundal Height At Umbil Quickening Date Ultra Sound Latest Weeks Gestation Final João Confirmed By Final João Confirmed Date Final João Date Ultra Sound Latest Days Gestation 0 0 Menstrual History Last Menstrual Date Menses Monthly On Bcp Conception Prior Menses Frequency Hcg Plus Date Menarche Onset Age Delivery Information Delivery Date Delivery Type Labor Anesthesia Weeks Gestation Incision Type Labor Labor Length Hrs Delivered By Post Complications Tubal Sterilization Discharge Date Comments 9 40 Discharge Information Feeding Method Contraceptive Method Maternal HG B and HCT Levels Ob Episode Information Episode Created Date Number of Fetuses Patient Bloodtype Patient rh Status Prepregnancy Weight lbs Domestic Partner Domestic Partner Phone Father Name Human Resources Executive Status 05/12/19 23 1 CLOSED Fetus Data First Name Last Name Admitted to NICU Weight (g) Sex Living Outcome Pediatric Complications Fetus ID Race Codes Race Delivery Type M Full Term [id number] Repeat João Calculation Initial João Date Initial Exam Date Initial Exam Provider Initial Ultrasound Date Last Menstrual Period Date Ultra Sound Weeks Gestation 0 Eighteen To Twenty Week João Update Ultra Sound Date Fundal Height At Umbil Quickening Date Ultra Sound Latest Weeks Gestation Final João Confirmed By Final João Confirmed Date Final João Date Ultra Sound Latest Days Gestation 0 0 Menstrual History Last Menstrual Date Menses Monthly On Bcp Conception Prior Menses Frequency Hcg Plus Date Menarche Onset Age Delivery Information Delivery Date Delivery Type Labor Anesthesia Weeks Gestation Incision Type Labor Labor Length Hrs Delivered By Post Complications Tubal Sterilization Discharge Date Comments 1 38 Discharge Information Feeding Method Contraceptive Method Maternal HG B and HCT Levels
--- OUTSIDE RECORDS SUMMARY | 2024-09-01 09:29 | XMS_ITS | Clinical Summary ---
Author Organization [facility] Address [address] [place] [address] Care Team Providers Care Clinical Quality Manager Name Role Phone Unknown, Provider Primary Care Provider Unavaila ble Source Comments [facility],non-owned Affiliates and Associated Physician Practices is amultiple site organization consisting of ambulatory clinics and hospital sitesin [place], [place], [place] and [place]. This disclosure is being madepursuant to the Care Everywhere program and may not contain all information available regarding this patient. Last updated 17.[facility] Allergies Active Allergy Reactions Criticality Noted Date Comments Sulfa Drugs Unknown 12/14/2017 Just knows allergic Medications * Be aware that medications may not be up to date on this document. Alwaysverify current medications with the patient. albuterol HFA (PROAIR HFA) 108 (90 Base) MCG/ACT inhalerIndicatio ns:Acute bronchitis, unspecified organism Inhale 2 (two) puffs by mouth every 4 hours as needed 8.5 g 12/08/2020 Active Family History Medical History Relation Name Comments Diabetes - Type 2 Mother Relation Name Status Comments Mother Social History Tobacco Use Types Packs/Day Years Used Date Smoking Tobacco: Every Day Smokeless Tobacco: Never Comments No Sex and Gender Information Value Date Recorded Sex Assigned at Not on file Legal Sex Female 8:26 AM CDT Gender Identity Not on file Sexual Orientation Not on file Last Filed Vital Signs Vital Sign Reading Time Taken Comments Blood Pressure 122/70 12/08/2020 3:34 PM CDT Pulse 98 12/08/2020 3:34 PM CDT Temperature 36.7 C (98 F) 12/08/2020 3:34 PM CDT Respiratory Rate 16 12/08/2020 3:34 PM CDT Oxygen Saturation 98% 12/08/2020 3:34 PM CDT Inhaled Oxygen Concentration - - Weight 90.3 kg (199 lb) 12/08/2020 3:34 PM CDT Height 167.6 cm (5' 6) 12/08/2020 3:34 PM CDT Body Mass Index 32.12 12/08/2020 3:34 PM CDT Plan of Treatment Health Maintenance Due Date Last Done Comments COLOGUARD (AGES 45-75) - COL ON CA SCREENING 1967 COLON MONITORING 1967 COLONOSCOPY - COLON CA SCREENING 1967 CT COLONOGRAPHY - COLON CA SCREENING 1967 Colorectal Cancer Screening 1967 FIT - COLON CA SCREENING 1967 FLEX SIG - COLON CA SCREENING 1967 LIPID TESTING 1967 MAMMOGRAM 1967 HIV SCREENING 11/05/1982 HEPATITIS C SCREENING 11/01/1985 DTAP/TDAP/TD VACCINES (1 - Tdap) 11/05/1986 HEPATITIS B VACCINE (1 of 3 - 19+ 3-dose series) 11/05/1986 PNEUMOCOCCAL VACCINE 50+ (1 of 1 - PCV) 11/05/2017 ZOSTER VACCINE (1 of 2) 11/05/2017 SCREENING FOR DIABETES 12/08/2020 COVID-19 VACCINE (3 - 2023-2 5 season) 2023 07/27/2020, 06/29/2020 DEPRESSION SCREENING 03/27/2024 INFLUENZA VACCINE (Season Ended) 2024 HIB VACCINE Aged Out No longer eligi ble based on patient's age to complete this topic HPV VACCINE Aged Out No longer eligi ble based on patient's age to complete this topic MENINGOCOCCAL (Group B) VACCINE SHARED DECISION-MAKING Aged Out No longer eligible based on patient's age to complete this topic MENINGOCOCCAL GROUPS A/C/Y/W VACCINE Aged Out No longer eligible b ased on patient's age to complete this topic Care Teams Clinical Quality Manager Relationship Specialty Start Date End Date Unknown, Provider PCP - General 12/08/20
[2024-09-01 09:48] LABS: Basophils Absolute Auto 0.1 K/mm3 (0.0-0.1); Basophils Percent Auto 0.7 % (0.2-1.2); Eosinophils Absolute Auto 0.2 K/mm3 (0-0.3); Eosinophils Percent Auto 2.6 % (0-4.4); Hematocrit 42.2 % (37.0-47.0); Hemoglobin 13.6 g/dL (12.0-15.0); Immature Granulocyte Absolute 0.02 K/mm3 (0.00-0.031); Immature Granulocyte Percent A 0.3 % (0-0.5); Lymphocytes Absolute Auto 2.37 K/mm3 (0.9-3.2); Mean Corpuscular HGB Conc 32.2 g/dl (32-36); Mean Corpuscular Hemoglobin 30.6 pg (26-34); Mean Platelet Volume 9.3 fl (7.4-10.4); Monocytes Absolute Auto 0.5 K/mm3 (0.1-0.6); Monocytes Percent Auto 7.3 % (2.6-8.5); Neutrophils Absolute Auto 4.2 K/mm3 (1.3-6.7); Neutrophils Percent Auto 57.1 % (45.5-73.1); Platelet Count Result 228 k/mm3 (150-375); Red Blood Count 4.44 M/mm3 (4.2-5.4); Red Cell Distribution Width 12.9 % (11.5-14.5); White Blood Count 7.4 K/mm3 (4.5-10.0)
[2024-09-01 09:50] LABS: Add Urine Microscopic? NO; Appearance Urine Clear (Clear); Bilirubin Urine Negative (Negative); Blood Urine Negative (Negative); Color Urine Yellow (Yellow); Glucose Urine UA Negative (Negative); Ketones Urine Negative (Negative); Leukocyte Esterase Ur Negative LEU/UL (Negative); Nitrate Urine Negative (Negative); Protein Urine Negative (Negative); Specific Grav Ur 1.017 (1.001-1.035); Urobilinogen Urine 0.2 mg/dL (<2.0); pH Urine 8.5 (5.0-9.0)
[2024-09-01 09:58] LABS: Alanine Aminotransferase 28 U/L (6-35); Albumin Level 4.4 g/dL (3.5-5.1); Alkaline Phosphatase 76 U/L (38-126); Anion Gap 8 mmol/L (4-12); Aspartate Amino Transferase 32 U/L (14-36); Bilirubin,Total 0.9 mg/dL (0.2-1.3); Blood Urea Nitrogen 18 mg/dL (7-17); Carbon Dioxide 22 mmol/L (22-30); Chloride 107 mmol/L (98-107); Estimated CRCL calculation 75 ml/min; Estimated Glomerular Filt Rate > 60; Glucose 103 mg/dL (65-110); Lipase 43 U/L (23-300); Potassium 4.1 mmol/L (3.4-5.0); Sodium 137 mmol/L (137-145); Total Protein 7.5 g/dL (6.3-8.2)
--- NOTE | 2024-09-01 11:09 | ED.GENADULT ---
HPI - General Adult General Chief complaint: Recheck/Abnormal Lab/Rx Stated complaint: htn, abd. pain, R. lower back pain Time Seen by Provider: 09/01/24 11:05 Source: patient Mode of arrival: ambulatory History of Present Illness HPI narrative: 58 years old white female came to the ED by private car complaining of epigastric pain for years, intermittent, got worse over the last 2 days. Right flank pain for the last 2-3 years, got worse over the last few days. Patient does not have a medical doctor, usually go to different emergency room for the above symptoms. Currently complaining of nausea. She denies any fever or chills or diarrhea constipation or urinary symptoms. Patient lives with her who she is planning to file for divorce in the next few weeks. Patient denies smoking or drinking, uses gummies daily. History of GERD and hiatal hernia. Related Data Home Medications ?Medication ?Instructions ?Recorded ?Confirmed ?Last Taken ?Type acetaminophen 500 mg oral powder 500 mg PO Q6H PRN 06/29/23 06/29/23 Unknown History packet (Tylenol Extra Strength) Allergies Allergy/AdvReac Type Severity Reaction Status Date / Time Sulfa (Sulfonamide Allergy Unknown Unknown Verified 09/01/24 09:25 Antibiotics) Review of Systems Review of Systems: All systems reviewed & are unremarkable except as noted in HPI and below PMFSH Past Medical History Medical History Urinary tract infection Hyperlipidemia due to dietary fat intake Renal cancer GERD (gastroesophageal reflux disease) Surgical History Surgical History H/O kidney removal H/O: hysterectomy Family History Family History Mother Hypertension Family history of diabetes mellitus in first degree relative Diabetes mellitus Father Family history of hypercholesterolemia Grandparent Family history of alcoholism Sibling Family history of liver disease Social History Social History Smoking status: Never smoker Alcohol intake: current Substance use type: does not use Lack of Transportation: No Lack of Food: Never True Current Housing: I Have Housing Concerned About Future Housing: No Difficulty Paying Gas/Electric Bills: No Difficulty Paying for Meds: No Currently Unemployed: No Education: High School Diploma/GED Difficulty w/ Childcare or Family Care: No Gender identity (if verbalized by the patient): Female Exam Narrative: General appearance: Well-developed, well-nourished Skin: Normal color Head: Normocephalic, nontraumatic Eyes: Clear conjunctiva ENT: Oropharynx normal, ears normal, nose normal Neck: Supple, nontender Chest and respiratory: Airway patent, no respiratory distress, no accessory muscle use Heart: Regular rate/rhythm Abdomen: Soft, epigastric tenderness, right flank tenderness, no organomegaly, quiet bowel sounds Vascular: Normal peripheral pulses, normal capillary refill. Musculoskeletal: Normal range of motion, nontender back Neurologic: Alert and oriented ?3, LICENSING COURT MAGISTRATE is normal as tested, no gross motor deficit Course Vital Signs Vital signs: Vital Signs Temperature 36.2 C L 09/01/24 09:32 Pulse Rate 61 09/01/24 09:32 Respiratory Rate 16 09/01/24 09:32 Blood Pressure 150/69 H 09/01/24 09:32 Pulse Oximetry 99 09/01/24 09:32 Oxygen Delivery Room Air 09/01/24 09:32 Temperature 36.2 C L 09/01/24 09:32 Pulse Rate 60 09/01/24 14:01 Respiratory Rate 18 09/01/24 14:01 Blood Pressure 117/67 09/01/24 12:16 Pulse Oximetry 96 09/01/24 14:01 Oxygen Delivery Room Air 09/01/24 09:32 Medical Decision Making [facility] Narrative Medical decision making narrative: Patient came with epigastric and right flank pain for years Vital signs showing blood pressure 150/69 otherwise within normal limit Physical examination consistent with epigastric and right flank tenderness Differential diagnosis include anxiety like symptoms, gastritis, esophagitis, kidney stone, urinary tract infection, intra-abdominal tumor. Blood workup today includes CBC, CMP, lipase showed CALCIUM OF 11.0 SIMILAR TO PREVIOUS RECORDS Urinalysis showed NO EVIDENCE OF INFECTION CT abdomen and pelvis with IV contrast showed FOCAL UMBILICAL HERNIA WORKUP TODAY SHOWED NO SPECIFIC CAUSE TO EXPLAIN PATIENT CONDITION ANXIETY, STRESS RELATED SYMPTOMS, ESOPHAGITIS, GASTRITIS IS A POSSIBILITY. MY PLAN TO DISCHARGE PATIENT ON OMEPRAZOLE AND DICYCLOMINE. THE PT WAS DISCHARGED TO HOME.THE PT,S CONDITION UPON DISCHARGE WAS FAIR,EDUCATION WAS PROVIDED TO THE PT IN REFERENCE TO THE FINAL IMPRESSION,DISCHARGE STUDY RESULTS,TREATMENT,PROGNOSIS AND NEED FOR FOLLOW UP . Differential Diagnosis Differential Diagnosis: ABOVE Vital Signs Vital Signs: Vital Signs Temperature 36.2 C L 09/01/24 09:32 Pulse Rate 61 09/01/24 09:32 Respiratory Rate 16 09/01/24 09:32 Blood Pressure 150/69 H 09/01/24 09:32 Pulse Oximetry 99 09/01/24 09:32 Oxygen Delivery Room Air 09/01/24 09:32 Temperature 36.2 C L 09/01/24 09:32 Pulse Rate 60 09/01/24 14:01 Respiratory Rate 18 09/01/24 14:01 Blood Pressure 117/67 09/01/24 12:16 Pulse Oximetry 96 09/01/24 14:01 Oxygen Delivery Room Air 09/01/24 09:32 Lab Data 09/01/24 09:41 09/01/24 09:41 Labs: Lab Results 09/01/24 Range/Units 09:41 WBC 7.4 (4.5-10.0) K/mm3 RBC 4.44 (4.2-5.4) M/mm3 Hgb 13.6 (12.0-15.0) g/dL Hct 42.2 (37.0-47.0) % MCV 95.0 (80-100) fl MCH 30.6 (26-34) pg MCHC 32.2 (32-36) g/dl RDW 12.9 (11.5-14.5) % Plt Count 228 (150-375) k/mm3 MPV 9.3 (7.4-10.4) fl Immature Gran % (Auto) 0.3 (0-0.5) % Neut % (Auto) 57.1 (45.5-73.1) % Lymph % (Auto) 32.0 (18.3-44.2) % [place] % (Auto) 7.3 (2.6-8.5) % Eos % (Auto) 2.6 (0-4.4) % Baso % (Auto) 0.7 (0.2-1.2) % Lymph # (Auto) 2.37 (0.9-3.2) K/mm3 [place] # (Auto) 0.5 (0.1-0.6) K/mm3 Eos # (Auto) 0.2 (0-0.3) K/mm3 Baso # (Auto) 0.1 (0.0-0.1) K/mm3 Abs Immat Gran (auto) 0.02 (0.00-0.031) K/mm3 Absolute Neuts (auto) 4.2 (1.3-6.7) K/mm3 Absolute Nucleated RBC 0.000 (0.0-0.012) K/mm3 Nucleated RBC % 0.0 (0.0-0.2) % Sodium 137 (137-145) mmol/L Potassium 4.1 (3.4-5.0) mmol/L Chloride 107 (98-107) mmol/L Carbon Dioxide 22 (22-30) mmol/L Anion Gap 8 (4-12) mmol/L BUN 18 H (7-17) mg/dL Creatinine 0.86 (0.7-1.0) mg/dL Estim Creat Clear Calc 75 ml/min Estimated GFR > 60 (59 - ) Glucose 103 (65-110) mg/dL Calcium 11.0 H (8.4-10.2) mg/dL Total Bilirubin 0.9 (0.2-1.3) mg/dL AST 32 (14-36) U/L ALT 28 (6-35) U/L Alkaline Phosphatase 76 (38-126) U/L Total Protein 7.5 (6.3-8.2) g/dL Albumin 4.4 (3.5-5.1) g/dL Lipase 43 (23-300) U/L Urine Color Yellow (Yellow) Urine Appearance Clear (Clear) Urine pH 8.5 (5.0-9.0) Ur Specific [place] 1.017 (1.001-1.035) Urine Protein Negative (Negative) mg/dL Urine Glucose (UA) Negative (Negative) mg/dL Urine Ketones Negative (Negative) mg/dL Ur Blood (Man) Negative (Negative) Urine Nitrate Negative (Negative) Urine Bilirubin Negative (Negative) Urine Urobilinogen 0.2 (<2.0) mg/dL Leukocyte Esterase Rfl Negative (Negative) OSCAR/UL Imaging Data Radiologist's impression: Impressions Abdomen/Pelvis CT 09/01/24 13:15 Impression: No acute abnormality. No evidence for recurrent malignancy or metastatic disease. Focal umbilical hernia contains a loop of small bowel. Status post left nephrectomy, suspected left adrenalectomy, and hysterectomy. Critical Care Time Critical Care Time Critical Care Time: No Discharge Plan Discharge Clinical Impression: Abdominal pain, Hernia, umbilical Patient Disposition: Home Condition: Stable Instructions: Umbilical Hernia (ED), Abdominal Pain (ED) Additional Instructions: RETURN IF SYMPTOMS ARE WORSENING , CALL YOUR FAMILY PHYSICIAN FOR APPOINTMENT, TAKE TYLENOL NEEDED FOR ACHES AND PAIN, CONTINUE HOME MEDICATIONS. Patient Language: Danish Prescriptions: New dicyclomine 20 mg tablet 20 mg PO QID PRN (Reason: abdominal pain) Qty: 20 0RF omeprazole 40 mg capsule,delayed release(DR/EC) 40 mg PO DAILY Qty: 30 0RF No Action citalopram 10 mg tablet 10 mg PO DAILY Qty: 30 6RF Tylenol Extra Strength 500 mg powder in packet 500 mg PO Q6H PRN Follow-up/Referrals: Shruti De Dios, UNDERGROUND MINE SUPERINTENDENT-C [Primary Care Provider] -
--- OUTSIDE RECORDS SUMMARY | 2024-09-01 11:10 | XMS_ITS | Clinical Summary ---
Author Organization [facility] [employer] Address [address] [place] [address] Care Team Providers Care Box Truck Washer Name Role Phone Unknown, Provider Primary Care Provider Unavaila ble Source Comments [facility] [employer],non-owned Affiliates and Associated Physician Practices is amultiple site organization consisting of ambulatory clinics and hospital sitesin [place], [place]. This disclosure is being madepursuant to the Care Everywhere program and may not contain all information available regarding this patient. Last updated 17.[facility] [employer] Allergies Active Allergy Reactions Criticality Noted Date [...] age to complete this topic Care Teams Box Truck Washer Relationship Specialty Start Date End Date Unknown, Provider PCP - General 12/08/20
== END 2024-09-01 15:45 | disposition home or self-care (01) ==
PROVIDERS: Emergency Medicine; Emergency Provider Emergency Medicine; PCP Clinical Nurse Specialist
DX: K42.9 Umbilical hernia without obstruction or gangrene (principal); K21.9 Gastro-esophageal reflux disease without esophagitis; Z85.53 Personal history of malignant neoplasm of renal pelvis; E78.5 Hyperlipidemia, unspecified
CPT/HCPCS: 36415; 74177; 80053; 81003; 83690; 85025; 93005; 99284; Q9967

== ENCOUNTER 2025-02-14 08:10 | Emergency (ER) | payer SELFPAY ==
--- OUTSIDE RECORDS SUMMARY | 2025-02-12 18:00 | XMS_ITS | Encounter Summary ---
Author Organization [facility] Address [address] [place] [address] Care Team Providers Care Solid Tire Tuber Machine Operator Name Role Phone Unknown, Notinfile Primary Care Provider Unavail able Reason for Visit * Reason Comments Groin Pain Groin and pelvic teddy n with walking and movement. Pain started 3am on 02/11/25Reports she put a lidocaine patch on on her back on 02/10/25 at night then woke up at 3 AM with groin pain. Encounter Details Date Type Department Care Team (Late st Contact Info) Description 02/12/2025 6:00 PM NET DEVELOPER SOFTWARE ENGINEER C Office Visit [facility] at [address] [address] Eneida Acosta NP [address] [place] [address] [address] [place] [address] Groin pain, left (Primary Dx) Social History Tobacco Use Types Packs/Day Years Used Date Smoking Tobacco: Every Day Smokeless Tobacco: Never Alcohol Use Standard Drinks/Week Comments Defer 0 (1 standard drink = 0.6 oz pur e alcohol) Comments Unknown Sex and Gender Information Value Date Recorded Sex Assigned at Not on file Legal Sex Female 6:35 AM NET DEVELOPER SOFTWARE ENGINEER C Gender Identity Not on file Sexual Orientation Not on file documented as of this encounter Last Filed Vital Signs Vital Sign Reading Time Taken Comments Blood Pressure 128/70 02/12/2025 5:50 PM NET DEVELOPER SOFTWARE ENGINEER C Pulse 64 02/12/2025 5:50 PM NET DEVELOPER SOFTWARE ENGINEER C Temperature 36.2 C (97.1 F) 02/12/2025 5:50 PM NET DEVELOPER SOFTWARE ENGINEER C Respiratory Rate 16 02/12/2025 5:50 PM NET DEVELOPER SOFTWARE ENGINEER C Oxygen Saturation 99% 02/12/2025 5:50 PM NET DEVELOPER SOFTWARE ENGINEER C Inhaled Oxygen Concentration - - Weight 98.9 kg (218 lb) 02/12/2025 5:50 PM NET DEVELOPER SOFTWARE ENGINEER C Height - - Body Mass Index 36.59 02/22/2018 9:23 AM NET DEVELOPER SOFTWARE ENGINEER C documented in this encounter Functional Status documented as of this encounter Patient Instructions * Patient Instructions* Eneida Acosta NP - 02/12/2025 6:00 PM NET DEVELOPER SOFTWARE ENGINEER C If you have no improvement or worsening of your symptoms, please follow up with your Primary Care Provider, Convenient Care and or Emergency Room. I strive to provide you with EXCELLENT service. You may receive a survey after your visit today. If you cannot rate your experience as EXCELLENT, please let us know how we can improve and better meet your needs. Thank you for choosing [facility]! It was my pleasure to see you today, I hope you feel better soon! Eneida Acosta BACK TENDER CYLINDER DEVELOPER SOFTWARE ENGINEER C * Attachments The following attachments cannot be sent through Care Everywhere. * Groin Pain (AfterCare(R) Instructions(ER/ED)) (Yoruba) documented in this encounter Progress Notes * Eneida Acosta NP - 02/12/2025 6:00 PM CST Images from the original note were not included. Subjective/Objective Patient ID: Dayna Bourne is a 59 y.o. female. This patient has verbally consented to recording this visit in order to utilize AI technology in generating this note. Chief Complaint Groin Pain (Groin and pelvic pain with walking and movement. Pain started 3am on 02/11/25/Reports she put a lidocaine patch on on her back on 02/10/25 at night then woke up at 3 AM with groin pain. ) History of Present Illness Dayna Bourne is a 59 year old female who presents with severe groin pain and burning sensation. She experiences severe groin pain and a burning sensation that began the morning after applying a pain patch to her back. The pain is described as 'horrible' and 'like fire,' with an internal sensation. It persists despite removing the patch. The pain radiates down her leg and worsens with movement, such as getting into a truck or walking. 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 She is unable to take time off work due to financial constraints, as she is single and her recently moved out. She denies any changes in sexual partners and has not been sexually active. She had a hysterectomy with only the uterus removed. There is no vaginal discharge or changes in urinary habits. She has one kidney and avoids NSAIDs due to potential kidney issues. Tylenol has been ineffective in managing her pain. The sensation is similar to nerve pain, with numbness in some areas. Review of Systems All other systems reviewed and are negative. Physical Exam GENITOURINARY: External genitalia normal, no skin lesions or abnormalities. No inguinal hernia or bulge. Physical Exam Vitals reviewed. Exam conducted with a test desk supervisor present (Neelam Sprague LPN). Constitutional: Appearance: Normal appearance. She is normal weight. HENT: Head: Normocephalic. Right Ear: External ear normal. Left Ear: External ear normal. Nose: Nose normal. Mouth/Throat: Mouth: Mucous membranes are moist. Eyes: Extraocular Movements: Extraocular movements intact. Cardiovascular: Rate and Rhythm: Normal rate. Pulses: Normal pulses. Pulmonary: Effort: Pulmonary effort is normal. Genitourinary: Vagina: No vaginal discharge. Musculoskeletal: General: Normal range of motion. Cervical back: Normal range of motion. Skin: General: Skin is warm and dry. Capillary Refill: Capillary refill takes less than 2 seconds. Neurological: General: No focal deficit present. Mental Status: She is alert and oriented to person, place, and time. Mental status is at baseline. Psychiatric: Mood and Affect: Mood normal. Behavior: Behavior normal. Thought Content: Thought content normal. Judgment: Judgment normal. Vitals: 02/12/25 1750 BP: 128/70 Pulse: 64 Resp: 16 Temp: 36.2 ??C (97.1 ??F) SpO2: 99% Weight: 98.9 kg (218 lb) No results found. Past Medical History: Diagnosis Date Anemia Anxiety Bronchitis Chronic kidney disease Hypercholesteremia Personal history of other diseases of the circulatory system History of cardiac arrhythmia - (Added by TW Conv) Personal history of other diseases of the digestive system History of constipation - (Added by TESSY Conv) Current Outpatient Medications: albuterol HFA (PROVENTIL HFA,VENTOLIN HFA,PROAIR HFA) 90 mcg/actuation inhaler, Inhale 2 puffs every 6 (six) hours as needed for wheezing or shortness of breath, Disp: 1 each, Rfl: 0 ibuprofen (ibuprofen) 200 mg tab/cap, Take by mouth every 6 (six) hours as needed for pain., Disp: , Rfl: multivitamin capsule, Take 1 capsule by mouth daily., Disp: , Rfl: omeprazole (PriLOSEC) 40 mg capsule, Take 1 capsule (40 mg total) by mouth daily, Disp: , Rfl: pediatric multivitamin-iron tablet,chewable, , Disp: , Rfl: citalopram (CeleXA) 10 mg tablet, , Disp: , Rfl: dicyclomine (BENTYL) 20 mg tablet, TAKE 1 TABLET BY MOUTH 4 TIMES DAILY NEEDED FOR ABDOMINAL PAIN (Patient not taking: Reported on 02/12/2025), Disp: , Rfl: Allergies Allergen Reactions Sulfa (Sulfonamide Antibiotics) Unknown Sulfasalazine Unknown Just knows allergic Social History Tobacco Use Smoking status: Every Day Smokeless tobacco: Never Substance and Sexual Activity Drug use: Defer Sexual activity: Defer Alcohol Use: Not on file Past Surgical History: Procedure Laterality Date SECTION NEPHRECTOMY MT NEPHRECTOMY Kidney Surgery Laparoscopic Nephrectomy - (Added by TESSY Conv) Procedures Assessment/Plan Results LABS Urinalysis: Normal (02/12/2025) Recent Results (from the past 4 hours) POCT urinalysis dipstick Collection Time: 02/12/25 5:57 PM Result Value Ref Range Color, Urine, POC Yellow Clarity, ur, POC Clear Clear Glucose, ur, POC Negative Negative Bilirubin, ur, POC Negative Negative Ketones, ur, POC Negative Negative Specific [place], POC 1.025 1.003 - 1.030 Blood, ur, POC Negative Negative pH, ur, POC 6.5 5.0 - 8.0 Protein, ur, POC Negative Negative Urobilinogen, urine, POC 0.2 0.2 - 1.0 mg/dL Nitrite, ur, POC Negative Negative Leukocytes, ur, POC Negative Negative Lot Number [id number] Assessment & Plan Pelvic and perineal pain Acute severe burning groin pain likely nerve-related, possibly due to muscle strain or nerve irritation. Possibly early shingles. NSAIDs contraindicated due to single kidney. Tylenol ineffective. Steroids not recommended due to past adverse effects. - Apply ice to affected area. - Use Tylenol for pain management. - Rest and avoid strenuous activities. - Consider mild muscle relaxer if needed. Patient declined. - Seek hospital evaluation if pain worsens or persists for imaging and stronger pain management. Chronic low back pain Chronic low back pain possibly contributing to groin pain. - Continue current management strategies. - Use knee brace for support. Diagnoses and all orders for this visit: Groin pain, left (Primary) - POCT urinalysis dipstick Disposition Treatment plan including expectations, follow up, and return precautions discussed with patient/parent, verbalizes understanding. Medication dosage, use, and potential adverse reactions discussed with patient/parent. Advised to follow up with PCP if symptoms do not resolve as expected or sooner if condition worsens. Signs/symptoms warranting ER evaluation reviewed. Patient and/or guardian was given an opportunity to ask questions, questions answered. Eneida Acosta NP DEVELOPER SOFTWARE ENGINEER C documented in this encounter Plan of Treatment Not on file documented as of this encounter Procedures Procedure Name Priority Date/Time Associated Diagnosis Comments POCT URINALYSIS DIPSTICK Routine 02/12/2025 5:57 PM NET DEVELOPER SOFTWARE ENGINEER C Groin pain, left documented in this encounter Results * POCT urinalysis dipstick (02/12/2025 5:57 PM NET DEVELOPER SOFTWARE ENGINEER C) Color, Urine, POC Yellow Clarity, ur, POC Clear Clear Glucose, ur, POC Negative Negative Bilirubin, ur, POC Negative Negative Ketones, ur, POC Negative Negative Specific [place], POC 1.025 1.003 - 1.030 Blood, ur, POC Negative Negative pH, ur, POC 6.5 5.0 - 8.0 Protein, ur, POC Negative Negative Urobilinogen, urine, POC 0.2 0.2 - 1.0 mg/dL Nitrite, ur, POC Negative Negative Leukocytes, ur, POC Negative Negative Lot Number [id number] Urine 02/12/2025 5:57 PM NET DEVELOPER SOFTWARE ENGINEER C us Eneida Acosta NP POINT OF CARE TEST ORDERAB LES Final Result documented in this encounter Visit Diagnoses Diagnosis Groin pain, left- Primary documented in this encounter Care Teams Solid Tire Tuber Machine Operator Relationship Specialty Start Date End Date Unknown, Notinfile PCP - General 01/02/17 documented as of this encounter
--- OUTSIDE RECORDS SUMMARY | 2025-02-12 18:00 | XMS_ITS | Encounter Summary ---
Author Organization [facility] Address [address] [place] [address] Care Team Providers Care Torch Heater Name Role Phone Unknown, Notinfile Primary Care [...] st Contact Info) Description 02/12/2025 6:00 PM GARAGE CONSTRUCTION EQUIPMENT MECHANIC Office Visit [facility] at [address] [address] Eneida Acosta NP [address] [place] [address] [address] [place] [address] Groin pain, left (Primary Dx) Social History Tobacco Use Types Packs/Day Years Used Date Smoking Tobacco: Every Day Smokeless Tobacco: Never Alcohol Use Standard Drinks/Week Comments Defer 0 (1 standard drink = 0.6 oz pur e alcohol) Comments Unknown Sex and Gender Information Value Date Recorded Sex Assigned at Not on file Legal Sex Female 6:35 AM GARAGE CONSTRUCTION EQUIPMENT MECHANIC Gender Identity Not on file Sexual Orientation Not on file documented as of this encounter Last Filed Vital Signs Vital Sign Reading Time Taken Comments Blood Pressure 128/70 02/12/2025 5:50 PM GARAGE CONSTRUCTION EQUIPMENT MECHANIC Pulse 64 02/12/2025 5:50 PM GARAGE CONSTRUCTION EQUIPMENT MECHANIC Temperature 36.2 C (97.1 F) 02/12/2025 5:50 PM GARAGE CONSTRUCTION EQUIPMENT MECHANIC Respiratory Rate 16 02/12/2025 5:50 PM GARAGE CONSTRUCTION EQUIPMENT MECHANIC Oxygen Saturation 99% 02/12/2025 5:50 PM GARAGE CONSTRUCTION EQUIPMENT MECHANIC Inhaled Oxygen Concentration - - Weight 98.9 kg (218 lb) 02/12/2025 5:50 PM GARAGE CONSTRUCTION EQUIPMENT MECHANIC Height - - Body Mass Index 36.59 02/22/2018 9:23 AM GARAGE CONSTRUCTION EQUIPMENT MECHANIC documented in this encounter Functional Status documented as of this encounter Patient Instructions * Patient Instructions* Eneida Acosta NP - 02/12/2025 6:00 PM GARAGE CONSTRUCTION EQUIPMENT MECHANIC If you have no improvement or worsening [...] meet your needs. Thank you for choosing [facility]! It was my pleasure to see you today, I hope you feel better soon! Eneida Acosta PLATER APPRENTICE GE CONSTRUCTION EQUIPMENT MECHANIC * Attachments The following attachments cannot be sent through Care Everywhere. * Groin Pain (AfterCare(R) Instructions(ER/ED)) (Chinese) documented in this encounter Progress Notes * [...] truck or walking. She works for [employer] and is concerned about her a bility [...] Exam Vitals reviewed. Exam conducted with a information systems manager present (Neelam Sprague LPN). Constitutional: Appearance: Normal [...] Surgical History: Procedure Laterality Date SECTION NEPHRECTOMY ND NEPHRECTOMY Kidney Surgery Laparoscopic Nephrectomy - (Added by TESSY Conv) Procedures Assessment/Plan Results LABS Urinalysis: Normal (02/12/2025) Recent Results (from the past 4 hours) POCT urinalysis dipstick Collection Time: 02/12/25 5:57 PM Result Value Ref Range Color, Urine, POC Yellow Clarity, ur, POC Clear Clear Glucose, ur, POC Negative Negative Bilirubin, ur, POC Negative Negative Ketones, ur, POC Negative Negative Specific [place], POC 1.025 1.003 - 1.030 Blood, ur, POC Negative Negative pH, ur, POC 6.5 5.0 - 8.0 Protein, ur, POC Negative Negative Urobilinogen, urine, POC 0.2 0.2 - 1.0 mg/dL Nitrite, ur, POC Negative Negative Leukocytes, ur, POC Negative Negative Lot Number [id number] Assessment & Plan Pelvic and perineal pain [...] opportunity to ask questions, questions answered. Eneida Acsota NP GE CONSTRUCTION EQUIPMENT MECHANIC documented in this encounter Plan of Treatment Not on file documented as of this encounter Procedures Procedure Name Priority Date/Time Associated Diagnosis Comments POCT URINALYSIS DIPSTICK Routine 02/12/2025 5:57 PM GARAGE CONSTRUCTION EQUIPMENT MECHANIC Groin pain, left documented in this encounter Results * POCT urinalysis dipstick (02/12/2025 5:57 PM GARAGE CONSTRUCTION EQUIPMENT MECHANIC) Color, Urine, POC Yellow Clarity, ur, POC Clear Clear Glucose, ur, POC Negative Negative Bilirubin, ur, POC Negative Negative Ketones, ur, POC Negative Negative Specific [place], POC 1.025 1.003 - 1.030 Blood, ur, POC Negative Negative pH, ur, POC 6.5 5.0 - 8.0 Protein, ur, POC Negative Negative Urobilinogen, urine, POC 0.2 0.2 - 1.0 mg/dL Nitrite, ur, POC Negative Negative Leukocytes, ur, POC Negative Negative Lot Number [id number] Urine 02/12/2025 5:57 PM GARAGE CONSTRUCTION EQUIPMENT MECHANIC us Eneida Acosta NP POINT OF CARE TEST ORDERAB LES Final Result documented in this encounter Visit Diagnoses Diagnosis Groin pain, left- Primary documented in this encounter Care Teams Torch Heater Relationship Specialty Start Date End Date Unknown, Notinfile PCP - General 01/02/17 documented as of this encounter
[2025-02-14] VITALS (13 sets, daily range): BP systolic 113–147; BP diastolic 72–83; PULSE 60–71; RESP 16–20; TEMP 36.5; O2SAT 96–100
--- NOTE | ~2025-02-14 | XR_ITS ---
EXAMINATION: XR hip LT 2V w AP pelvis, 02/14/2025 10:04 FINAL INSPECTOR [employer]OVEMENT [employer]SEMBL[employer] HISTORY: pain LATERALLY COMPARISON: No comparisons available. Findings: No acute fracture or malalignment. No significant degenerative changes. Soft tissues unremarkable. Impression: No acute fracture or malalignment. Reviewed, dictated and finalized at location P. L INS[employer]OR [employer]OVEMENT [employer]SEM[employer] Impression: No acute fracture or malalignment.
--- NOTE | ~2025-02-14 | CT_ITS ---
EXAMINATION: CT lumbar spine wo con COMPARISON: None HISTORY: pain/sciatica TECHNIQUE: Axial images were obtained through the spine without IV contrast. Coronal, sagittal reconstruction images were obtained from the axial views. CT scan performed using dose optimization techniques including the following automated exposure control; adjustment of mA and/or kV; use of iterative reconstruction technique. Automatic exposure control was used to reduce radiation dose. Permanent radiation dose record is archived to PACS. FINDINGS: Mild dextroconvex scoliosis. Minimal loss of vertebral height. Grade 1 anterolisthesis of L4 on L5, no acute fracture is identified. Moderate loss of disc at L4-5 and L5-S1 with mild canal and foraminal stenosis. Soft tissues there are renal calculi noted the largest right kidney 2 mm. Impression: No acute abnormality. Reviewed, dictated and finalized at location P. ARE ELIGIBILITY INTERVIEWER Impression: No acute abnormality.
--- OUTSIDE RECORDS SUMMARY | 2025-02-14 08:14 | XMS_ITS | Clinical Summary ---
Author Organization [facility] [employer] Address [address] [place] [address] Care Team Providers Care Ice Scraper Name Role Phone Unknown, Provider Primary Care Provider Unavaila ble Source Comments [facility] [employer]non-owned Affiliates and Associated Physician Practices is amultiple site organization consisting of ambulatory clinics and hospital sitesin [place], [place], [place] and [place]. This disclosure is being madepursuant to the Care Everywhere program and may not contain all information available regarding this patient. Last updated 17.[facility] [employer] Allergies Active Allergy Reactions Criticality Noted Date [...] of 3 - 19+ 3-dose series) 11/05/1986 PAP SMEAR 11/05/1988 Cervical Cancer Screening 11/05/1997 PAP with HPV 11/05/1997 PNEUMOCOCCAL VACCINE 50+ (1 of 1 - PCV) 11/05/2017 ZOSTER VACCINE (1 of 2) 11/05/2017 SCREENING FOR DIABETES 12/08/2020 DEPRESSION SCREENING 03/27/2024 COVID-19 VACCINE (3 - 2024-2 6 season) 2024 07/27/2020, 06/29/2020 INFLUENZA VACCINE (#1) 2024 HIB VACCINE Aged Out No longer [...] age to complete this topic Care Teams Ice Scraper Relationship Specialty Start Date End Date Unknown, Provider PCP - General 12/08/20
--- OUTSIDE RECORDS SUMMARY | 2025-02-14 08:14 | XMS_ITS | Data Portability ---
Author Organization [facility], [place] Address [address] [place] [address] Care Team Providers Care Airport Control Operator Name Role Phone NELLIETHEAEMILY Primary Care Provider [phone] Assessment No assessment recorded. Plan of Treatment Reminders Order Date Submit Date Provider Last Modified By Organization Details Last Modified Time Details Appointments None recorded . Lab None recorded . Referral None recorded . Procedures None recorded . Surgeries None recorded . Imaging MAMMO, diagnost ic, digital, bilatera l 2022 023 [facility], [address], [place], [address], 11:10:22 US, breast, unilater al, complete [facility] [address], [place], [address], 3 13:00:21 Medication Orders None recorded . Patient TargetsNo targets recorded. Patient InstructionsNo instructions recorded. Reason for Referral None Reported. Results Created Date Observation Date Name Description Value Unit Range Abnormal Flag Note LastModifiedBy Organization Detail LastModifiedTime 06/02/1906/01/2022 MAMMO , diagn ostic , digit al, bilat eral No observ ation record ed. [email or web address] [facility] [address], [place], [address], 06/06/2022 11:10:22 Result Notes None recorded. Procedures Surgical History Date Name Laterality Status Provider Name and Address Organization Details Recorded Time Partial Hysterectomy completed Anamika Martinez [facility] 05/12/2022 09:40:32 kidney excision completed Dasia garcía, MAN [facility] [address], [place], [address], [place] [facility] 05/12/2022 10:12:02 Imaging Results None recorded. [...] Not available Not available Not available 05/12/2022 06000 [id number] SNOMED Anamika lew, [facility] 09:40:48 Medications Name Sig Start Date Stop Date Status Note LastModified by Organization Details LastModified Time amoxicillin 875 mg-potassium clavulanate 125 mg tablet TAKE 1 TABLET BY MOUTH EVERY 12 HOURS 05/12 completed Not Available Not Available Not Available Vitals Date Recorded Body height Body mass index (BMI) Body weight Systolic And Diastolic Provider Name and Address Organization Details Last Updated DateTime 05/12/2022 167.64 cm 31.8 kg/m2 04311.7 g 113/74 mm[Hg] Anamika Martinez [facility] 05/12/2022 09:40:14 Social History Question Answer Notes LastModified [...] Or The Highest Degree You Have Received? [id number] Information not available 05/12/2022 Are There Any [...] not available 05/12/2022 Are you able to walk independently without assistance or assistive devices? YESWOREST Information not available 05/12/2022 Are you able to care for yourself independently? 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 No Information not available 05/12/2022 What is your exercise level? Heavy Information not available 05/12/2022 Mental Status Question Answer Note LastModified by Organization D etails LastModified Time Do you feel stressed (tense, restless, nervous, or anxious, or unable to sleep at night)? [id number] Information not available 05/12/2022 Family History Relationship [...] Diagnosis SNOMED-CT Code Diagnosis ICD10 Code Diagnosis IMO Codes Diagnosis Note [id number] ZENAIDA Crook [place] [address] [address] 05/12/2022 09:17:30 05/12/2022 10:24:50 Mass of right breast [id number] N63.10 Right breast mass, located at 4 [...] Recorded Advance Directives Directive None Recorded Payers Insurance Date Sequence Insurance Name Policy Number Policy Casas Covered Member ID Casas Member ID Guarantor Name 05/11/2022 [facility] Dayna Steffen [id number] Dayna Bourne Notes Date Note Type Note [...] anemia, arthritis ZENAIDA Crook [address], [place], [address], [facility] 05/12/2022 10:14:17 OBGyn Episode Ob Episode Information Episode Created Date Number of Fetuses Patient Bloodtype Patient rh Status Prepregnancy Weight lbs Domestic Partner Domestic Partner Phone Father Name Senior Planning Analyst Status 05/12/19 23 1 CLOSED Fetus Data First Name Last Name Admitted to NICU Weight (g) Sex Living Outcome Pediatric Complications Fetus ID Race Codes Race Delivery Type F Full Term 40262 Repeat João Calculation Initial João Date Initial [...] Domestic Partner Domestic Partner Phone Father Name Senior Planning Analyst Status 05/12/19 23 1 CLOSED Fetus Data First Name Last Name Admitted to NICU Weight (g) Sex Living Outcome Pediatric Complications Fetus ID Race Codes Race Delivery Type 3175.14 4 Full Term 39170 Primary João Calculation Initial João Date Initial [...] Domestic Partner Domestic Partner Phone Father Name Senior Planning Analyst Status 05/12/19 23 1 CLOSED Fetus Data First Name Last Name Admitted to NICU Weight (g) Sex Living Outcome Pediatric Complications Fetus ID Race Codes Race Delivery Type M Full Term 36432 Repeat João Calculation Initial João Date Initial [...]
--- OUTSIDE RECORDS SUMMARY | 2025-02-14 08:14 | XMS_ITS | Encounter Summary ---
Author Organization [facility] Address [address] [place] [address] Phone Care Team Providers Care Client Support Professional Name Role Phone Unknown, Notinfile Primary Care Provider Unavail able Encounter Details Date Type Department Care Team (Latest Contact Info) Description 06/04/2018 Orders Only [facility] Scanning, Provider Social History Tobacco Use Types Packs/Day Years Used Date Smoking Tobacco: Every Day Smokeless Tobacco: Never Alcohol Use Standard Drinks/Week Comments Defer 0 (1 standard drink = 0.6 oz pur e alcohol) Comments Unknown Sex and Gender Information Value Date Recorded Sex Assigned at Not on file Legal Sex Female 6:35 AM BRANCH DIRECTOR Gender Identity Not on file Sexual Orientation Not on file documented as of this encounter Plan of Treatment Not on file documented as of this encounter Procedures Procedure Name Priority Date/Time Associated Diagnosis Comments SCAN - RADIOLOGY/IMAGING 06/04/2018 documented in this encounter Results * SCAN - RADIOLOGY/IMAGING (06/04/2018) Anatomical Region Laterality Modality Other us Provider Scanning Final Result documented in this encounter Visit Diagnoses Not on filedocumented in this encounter Additional Health Concerns Infection Onset Date Last Indicated Resolved Time COVID: Suspected 10/27/2024 10/27/2024 10/27/2024 11:12 AM CDT documented as of this encounter Care Teams Client Support Professional Relationship Specialty Start Date End Date Unknown, Notinfarben PCP - General 01/02/17 documented as of this encounter
--- OUTSIDE RECORDS SUMMARY | 2025-02-14 08:14 | XMS_ITS ---
Author Organization [facility] Address [address] [place] [address] Care Team Providers Care Kitchen Manager Name Role Phone Unknown, Notinfile Primary Care Provider Unavail able Active Problems Problem Noted Date Diagnosed Date Lung mass 06/24/2016 Renal cell carcinoma, left 06/12/2015 Renal mass 09/06/2013 Encounter for preventive health examination 07/26 Current Treatment and Therapy Plans No current plan information found. Past Treatment and Therapy Plans No past plan information found. Lifetime Dose Tracking * Chemical Lifetime Dose Automatic Entry Manual Entr y DLP 1,671 mGycm 1,671 mGycm 0 mGycm
--- OUTSIDE RECORDS SUMMARY | 2025-02-14 08:14 | XMS_ITS | Clinical Summary ---
Author Organization [facility] Address [address] [place] [address] Care Team Providers Care Fuel Oil Clerk Name Role Phone Unknown, Notinfile Primary Care Provider Unavail able Allergies Active Allergy Reactions Criticality Noted Date Comments Sulfa (Sulfonamide Antibiotics) Unknown 10/03/2017 Sulfasalazine Unknown 12/14/2017 Just knows allergic Medications citalopram (CeleXA) 10 mg tablet 4 Active pediatric multivitamin-ir on tablet,chewable 4 Active ibuprofen (ibuprofen) 200 mg tab/cap Take by mouth every 6 (six) hours as needed for pain. Active multivitamin capsule Take 1 capsule by mouth daily. Active dicyclomine (BENTYL) 20 mg tablet TAKE 1 TABLET BY MOUTH 4 TIMES DAILY NEEDED FOR ABDOMINAL PAIN 5 Active omeprazole (PriLOSEC) 40 mg capsule Take 1 capsule (40 mg total) by mouth daily 5 Active albuterol HFA (PROVENTIL HFA,VENTOLIN HFA,PROAIR HFA) 90 mcg/actuation inhalerIndicati ons:Wheezing Inhale 2 puffs every 6 (six) hours as needed for wheezing or shortness of breath 1 each 5 Active Active Problems Problem Noted Date Diagnosed Date Lung mass 06/24/2016 Renal cell carcinoma, left 06/12/2015 Renal mass 09/06/2013 Encounter for preventive health examination 07/26 Encounters Date Type Department Care Team Description 02/12/2025 6:00 PM PRINCIPAL ENGINEER Office Visit [facility] Care at [address] [address] Eneida Acosta NP Groin pain, left (Primary Dx) from Last 3 Months Surgical History Surgery Date Site/Laterality Comments ME LAPAROSCOPY NEPHRECTOMY W/PARTIAL URETERECT Kidney Surgery Laparoscopic Nephrectomy - (Added by TW Conv) SECTION NEPHRECTOMY Medical History Medical History Date Comments Personal history of other di seases of the digestive system History of constipation - (A dded by TW Conv) Personal history of other di seases of the circulatory system History of cardiac arrhythmi a - (Added by TW Conv) Anemia Anxiety Bronchitis Hypercholesteremia Chronic kidney disease Family History Medical History Relation Name Comments Cancer Father Family history of malignant neoplasm - (Added by TW Conv) Cancer Mother Family history of malignant neoplasm - (Added by TW Conv) Diabetes Mother Family history of diabetes mellitus - (Added by TW Conv) Relation Name Status Comments Father Mother Social History Tobacco Use Types Packs/Day Years Used Date Smoking Tobacco: Every Day Smokeless Tobacco: Never Alcohol Use Standard Drinks/Week Comments Defer 0 (1 standard drink = 0.6 oz pur e alcohol) Comments Unknown Sex and Gender Information Value Date Recorded Sex Assigned at Not on file Legal Sex Female 6:35 AM PRINCIPAL ENGINEER Gender Identity Not on file Sexual Orientation Not on file Last Filed Vital Signs Vital Sign Reading Time Taken Comments Blood Pressure 128/70 02/12/2025 5:50 PM PRINCIPAL ENGINEER Pulse 64 02/12/2025 5:50 PM PRINCIPAL ENGINEER Temperature 36.2 C (97.1 F) 02/12/2025 5:50 PM PRINCIPAL ENGINEER Respiratory Rate 16 02/12/2025 5:50 PM PRINCIPAL ENGINEER Oxygen Saturation 99% 02/12/2025 5:50 PM PRINCIPAL ENGINEER Inhaled Oxygen Concentration - - Weight 98.9 kg (218 lb) 02/12/2025 5:50 PM PRINCIPAL ENGINEER Height 164.4 cm (5' 4.72) 02/22/2018 9:23 AM CS T Body Mass Index 36.59 02/22/2018 9:23 AM PRINCIPAL ENGINEER Plan of Treatment Health Maintenance Due Date Last Done Comments Breast Cancer Screening-Mammogram 1967 Cervical Cancer Screening 1967 Colon Cancer Screening-Colonoscopy 1967 Depression Screening 1967 Hepatitis C Screening 1967 DTaP/Tdap/Td Vaccine (1 - Tdap) 11/05/1978 Hepatitis B Screening 11/05/1985 Regular Well Visit/Exam 18-64 11/05/1985 Pneumococcal vaccine <65 (1 of 2 - PCV) 11/05/1986 Zoster Vaccine (1 of 2) 11/05/2017 Covid-19 Vaccine (2 - 2024- season) 11/25/202407/2020 Influenza Vaccine (#1) 2024 Procedures Procedure Name Priority Date/Time Associated Diagnosis Comments POCT URINALYSIS DIPSTICK Routine 02/12/2025 5:57 PM PRINCIPAL ENGINEER Groin pain, left from Last 3 Months Results * POCT urinalysis dipstick (02/12/2025 5:57 PM PRINCIPAL ENGINEER) Color, Urine, POC Yellow Clarity, ur, POC Clear Clear Glucose, ur, POC Negative Negative Bilirubin, ur, POC Negative Negative Ketones, ur, POC Negative Negative Specific [place], POC 1.025 1.003 - 1.030 Blood, ur, POC Negative Negative pH, ur, POC 6.5 5.0 - 8.0 Protein, ur, POC Negative Negative Urobilinogen, urine, POC 0.2 0.2 - 1.0 mg/dL Nitrite, ur, POC Negative Negative Leukocytes, ur, POC Negative Negative Lot Number [id number] Urine 02/12/2025 5:57 PM PRINCIPAL ENGINEER us Eneida Acosta NP POINT OF CARE TEST ORDERAB LES Final Result from Last 3 Months Care Teams Fuel Oil Clerk Relationship Specialty Start Date End Date Unknown, Notinfile PCP - General 01/02/17
--- OUTSIDE RECORDS SUMMARY | 2025-02-14 08:14 | XMS_ITS | Encounter Summary ---
Author Organization [facility] Healthcare Address [address] [place] [address] Care Team Providers Care Envelope Addresser Name Role Phone Unknown, Eamon Primary Care Provider Unavail able Encounter Details Date Type Department Care Team (Late st Contact Info) Description 10/02/2019 Telephone [facility] Imaging [address] [place] [address] Jeanine Hahn, Social History Tobacco Use Types Packs/Day Years Used Date Smoking Tobacco: Every Day Smokeless Tobacco: Never Alcohol Use Standard Drinks/Week Comments Defer 0 (1 standard drink = 0.6 oz pur e alcohol) Comments Unknown Sex and Gender Information Value Date Recorded Sex Assigned at Not on file Legal Sex Female 6:35 AM POWER AND RECOVERY SHIFT ENGINEER Gender Identity Not on file Sexual Orientation Not on file documented as of this encounter Plan of Treatment Not on file documented as of this encounter Visit Diagnoses Not on filedocumented in this encounter Additional Health Concerns Infection Onset Date Last Indicated Resolved Time COVID: Suspected 10/27/2024 10/27/2024 10/27/2024 11:12 AM CDT documented as of this encounter Care Teams Envelope Addresser Relationship Specialty Start Date End Date Unknown, Eamon PCP - General 01/02/17 documented as of this encounter
[2025-02-14] MEDS: KETOROLAC 15 MG/ML VIAL (*BKC) IV PUSH (09:17)
[2025-02-14 09:20] LABS: Add Urine Microscopic? YES; Appearance Urine Clear (Clear); Glucose Urine UA Negative (Negative); Leukocyte Esterase Ur Trace LEU/UL (Negative); Nitrate Urine Negative (Negative); Non Pathogenic Casts 0-2; Specific Grav Ur 1.022 (1.001-1.035)
[2025-02-14 09:21] LABS: Hematocrit 42.7 % (37.0-47.0); Hemoglobin 14.3 g/dL (12.0-15.0); Immature Granulocyte Percent A 0.4 % (0-0.5); Lymphocytes Absolute Auto 2.96 K/mm3 (0.9-3.2); Mean Corpuscular HGB Conc 33.5 g/dl (32-36); Mean Corpuscular Hemoglobin 31.2 pg (26-34); Mean Corpuscular Volume 93.2 fl (80-100); Nucleated Red Blood Cells Absolute Auto 0.000 K/mm3 (0.0-0.012); Nucleated Red Blood Cells Perc 0.0 % (0.0-0.2); Platelet Count Result 256 k/mm3 (150-375); Red Blood Count 4.58 M/mm3 (4.2-5.4); White Blood Count 8.0 K/mm3 (4.5-10.0)
[2025-02-14 09:41] LABS: Alanine Aminotransferase 21 U/L (6-35); Albumin Level 4.3 g/dL (3.5-5.1); Alkaline Phosphatase 80 U/L (38-126); Anion Gap 7 mmol/L (4-12); Aspartate Amino Transferase 25 U/L (14-36); Bilirubin,Total 0.9 mg/dL (0.2-1.3); Blood Urea Nitrogen 25 mg/dL (7-17); Calcium 10.9 mg/dL (8.4-10.2); Carbon Dioxide 24 mmol/L (22-30); Chloride 104 mmol/L (98-107); Estimated CRCL calculation 67 ml/min; Estimated Glomerular Filt Rate 59; Glucose 90 mg/dL (65-110); Potassium 4.2 mmol/L (3.4-5.0); Sodium 135 mmol/L (137-145); Total Protein 7.6 g/dL (6.3-8.2)
--- OUTSIDE RECORDS SUMMARY | 2025-02-14 09:48 | XMS_ITS | Encounter Summary ---
Author Organization [facility] Address [address] [place] [address] Phone Care Team Providers Care Broadcast Transmitter Operator Name Role Phone Unknown, Notinfile Primary [...] on file Legal Sex Female 6:35 AM ORE DIGGER Gender Identity Not on file Sexual Orientation [...] documented as of this encounter Care Teams Broadcast Transmitter Operator Relationship Specialty Start Date End Date Unknown, Notinfarben PCP - General 01/02/17 documented as of this encounter
--- OUTSIDE RECORDS SUMMARY | 2025-02-14 09:48 | XMS_ITS | Clinical Summary ---
Author Organization [facility] Address [address] [place] [address] Care Team Providers Care Grocery Caddy Name Role Phone Unknown, Provider Primary Care Provider Unavaila ble Source Comments [facility],non-owned Affiliates and Associated Physician Practices is amultiple site organization consisting of ambulatory clinics and hospital sitesin [place], [place], [place] and [place]. This disclosure is being madepursuant to the Care Everywhere program and may not contain all information available regarding this patient. Last updated 17.[facility] Allergies Active Allergy Reactions Criticality Noted Date [...] age to complete this topic Care Teams Grocery Caddy Relationship Specialty Start Date End Date Unknown, Provider PCP - General 12/08/20
--- OUTSIDE RECORDS SUMMARY | 2025-02-14 09:48 | XMS_ITS | Clinical Summary ---
Author Organization [facility] Address [address] [place] [address] Care Team Providers Care Sql Database Programmer Name Role Phone Unknown, Notinfile Primary Care [...] Department Care Team Description 02/12/2025 6:00 PM REHAB SPEC Office Visit [facility] Care at [address] [address] Eneida Acosta NP Groin pain, left (Primary Dx) from Last 3 Months Surgical History Surgery Date Site/Laterality Comments [place] LAPAROSCOPY NEPHRECTOMY W/PARTIAL URETERECT Kidney Surgery Laparoscopic [...] on file Legal Sex Female 6:35 AM REHAB SPEC Gender Identity Not on file Sexual Orientation Not on file Last Filed Vital Signs Vital Sign Reading Time Taken Comments Blood Pressure 128/70 02/12/2025 5:50 PM REHAB SPEC Pulse 64 02/12/2025 5:50 PM REHAB SPEC Temperature 36.2 C (97.1 F) 02/12/2025 5:50 PM REHAB SPEC Respiratory Rate 16 02/12/2025 5:50 PM REHAB SPEC Oxygen Saturation 99% 02/12/2025 5:50 PM REHAB SPEC Inhaled Oxygen Concentration - - Weight 98.9 kg (218 lb) 02/12/2025 5:50 PM REHAB SPEC Height 164.4 cm (5' 4.72) 02/22/2018 9:23 AM CS T Body Mass Index 36.59 02/22/2018 9:23 AM REHAB SPEC Plan of Treatment Health Maintenance Due Date [...] POCT URINALYSIS DIPSTICK Routine 02/12/2025 5:57 PM REHAB SPEC Groin pain, left from Last 3 Months Results * POCT urinalysis dipstick (02/12/2025 5:57 PM REHAB SPEC) Color, Urine, POC Yellow Clarity, ur, POC Clear Clear Glucose, ur, POC Negative Negative Bilirubin, ur, POC Negative Negative Ketones, ur, POC Negative Negative Specific [place], POC 1.025 1.003 - 1.030 Blood, ur, POC Negative Negative pH, ur, POC 6.5 5.0 - 8.0 Protein, ur, POC Negative Negative Urobilinogen, urine, POC 0.2 0.2 - 1.0 mg/dL Nitrite, ur, POC Negative Negative Leukocytes, ur, POC Negative Negative Lot Number [id number] Urine 02/12/2025 5:57 PM REHAB SPEC us Eneida Acosta NP POINT OF CARE TEST ORDERAB LES Final Result from Last 3 Months Care Teams Sql Database Programmer Relationship Specialty Start Date End Date Unknown, Notinfile PCP - General 01/02/17
--- OUTSIDE RECORDS SUMMARY | 2025-02-14 09:48 | XMS_ITS | Encounter Summary ---
Author Organization [facility] Address [address] [place] [address] Care Team Providers Care Landing Signal Officer Name Role Phone Unknown, Eamon Primary Care Provider Unavail able Encounter Details Date Type Department Care Team (Late st Contact Info) Description 10/02/2019 Telephone [facility] Imaging [address] [place] [address] Jeanine Hahn, Social History Tobacco Use Types Packs/Day Years Used Date Smoking Tobacco: Every Day Smokeless Tobacco: Never Alcohol Use Standard Drinks/Week Comments Defer 0 (1 standard drink = 0.6 oz pur e alcohol) Comments Unknown Sex and Gender Information Value Date Recorded Sex Assigned at Not on file Legal Sex Female 6:35 AM DEPUTY ADMINISTRATOR Gender Identity Not on file Sexual Orientation Not on file documented as of this encounter Plan of Treatment Not on file documented as of this encounter Visit Diagnoses Not on filedocumented in this encounter Additional Health Concerns Infection Onset Date Last Indicated Resolved Time COVID: Suspected 10/27/2024 10/27/2024 10/27/2024 11:12 AM CDT documented as of this encounter Care Teams Landing Signal Officer Relationship Specialty Start Date End Date Unknown, Eamon PCP - General 01/02/17 documented as of this encounter
--- OUTSIDE RECORDS SUMMARY | 2025-02-14 09:48 | XMS_ITS ---
Author Organization [facility] Healthcare Address [address] [place] [address] Care Team Providers Care Automation Tester Name Role Phone Unknown, Notinfile Primary Care [...]
--- NOTE | 2025-02-14 10:12 | ED_ITS ---
HPI - General Adult General Chief complaint: Back Pain/Injury Stated complaint: on monday, back pain, left groin Time Seen by Provider: 02/14/25 08:22 History of Present Illness HPI narrative: Patient is a 59-year-old female who presents ER with low back pain. Reports that is chronic but has flared over last couple of days. Left low back radiates down the left leg. Today she started having pain in her left groin that is worse with any attempted range of motion of the left lower extremity. She has pins and needles sensation over the groin on left side but no actual anesthesia. She consents the ability to have a bowel movement and urinate and she has had both today. No known trauma. No fevers or chills or sweats. Related Data Allergies Allergy/AdvReac Type Severity Reaction Status Date / Time Sulfa (Sulfonamide Allergy Unknown Unknown Verified 02/14/25 08:24 Antibiotics) Review of Systems 2 Review of Systems: All systems reviewed & are unremarkable except as noted in HPI and below Constitutional: Constitutional: Reports no additional constitutional complaints Cardiovascular: Cardiovascular: Reports no additional cardiovascular complaints Respiratory: Respiratory: Reports no additional respiratory complaints Musculoskeletal: Musculoskeletal: Reports no additional musculoskeletal complaints Neurologic: Reports system reviewed and no additional complaints, except as documented [facility] Past Medical History Medical History Urinary tract infection Hyperlipidemia due to dietary fat intake Renal cancer GERD (gastroesophageal reflux disease) Surgical History Surgical History H/O kidney removal H/O: hysterectomy Family History Family History Mother Hypertension Family history of diabetes mellitus in first degree relative Diabetes mellitus Father Family history of hypercholesterolemia Grandparent Family history of alcoholism Sibling Family history of liver disease Social History Social History Smoking status: Never smoker Alcohol intake: current Substance use type: does not use Lack of Transportation: No Lack of Food: Never True Current Housing: I Have Housing Concerned About Future Housing: No Difficulty Paying Gas/Electric Bills: No Difficulty Paying for Meds: No Currently Unemployed: No Education: High School Diploma/GED Difficulty w/ Childcare or Family Care: No Gender identity (if verbalized by the patient): Female Exam 2 Narrative: GENERAL: Well-appearing, well-nourished, and in no acute distress. HEAD: Normocephalic, atraumatic. ENT: Mucous membranes moist. CHEST: Clear to auscultation. No respiratory distress. HEART: Regular rate and rhythm. Normal peripheral pulses. ABDOMEN: Soft, nontender, nondistended. BACK: TTP L4 region midline w/o step-off or bruising/abrasion. Mild left paraspinal tenderness in this area. Otherwise normal exam. EXTREMITIES: Normal range of motion. No edema. Left inguinal crease with tenderness with palpation that reproduces the patient's discomfort. SKIN: Warm, dry, no rash. NEURO: Alert and oriented x3. Sharp touch intact throughout the left lower extremity and in the left groin. PSYCH: Normal mood and affect. Course Course Emergency Course: Pain improving with Toradol but still has some tingling. Discussed imaging and lab results. It is not felt patient has UTI. She will be discharged with low- dose naproxen and a muscle relaxer. Discussed stretching exercises. Suspect hip flexor strain as well as low back pain with radiculopathy. I do not feel patient has cauda equina syndrome. She is appropriate for discharge home. Vital Signs Vital signs: Vital Signs Temperature 97.7 F 02/14/25 08:18 Pulse Rate 62 02/14/25 08:18 Respiratory Rate 20 02/14/25 08:18 Blood Pressure 147/75 H 02/14/25 08:18 Pulse Oximetry 98 02/14/25 08:18 Oxygen Delivery Room Air 02/14/25 08:18 Temperature 97.7 F 02/14/25 08:18 Pulse Rate 71 02/14/25 11:16 Respiratory Rate 18 02/14/25 11:16 Blood Pressure 124/72 02/14/25 11:16 Pulse Oximetry 98 02/14/25 11:16 Oxygen Delivery Room Air 02/14/25 08:18 Medical Decision Making Differential Diagnosis Differential Diagnosis: Low back strain, sciatica, vertebral fracture, [employer] infection, cauda equina, radiculopathy. Vital Signs Vital Signs: Vital Signs Temperature 97.7 F 02/14/25 08:18 Pulse Rate 62 02/14/25 08:18 Respiratory Rate 20 02/14/25 08:18 Blood Pressure 147/75 H 02/14/25 08:18 Pulse Oximetry 98 02/14/25 08:18 Oxygen Delivery Room Air 02/14/25 08:18 Temperature 97.7 F 02/14/25 08:18 Pulse Rate 71 02/14/25 11:16 Respiratory Rate 18 02/14/25 11:16 Blood Pressure 124/72 02/14/25 11:16 Pulse Oximetry 98 02/14/25 11:16 Oxygen Delivery Room Air 02/14/25 08:18 Lab Data Lab results reviewed: Yes I reviewed the patient's lab results. 02/14/25 09:06 02/14/25 09:06 Labs: Lab Results 02/14/25 02/14/25 Range/Units 09:06 09:11 WBC 8.0 (4.5-10.0) K/mm3 RBC 4.58 (4.2-5.4) M/mm3 Hgb 14.3 (12.0-15.0) g/dL Hct 42.7 (37.0-47.0) % MCV 93.2 (80-100) fl MCH 31.2 (26-34) pg MCHC 33.5 (32-36) g/dl RDW 13.1 (11.5-14.5) % Plt Count 256 (150-375) k/mm3 MPV 9.6 (7.4-10.4) fl Immature Gran % (Auto) 0.4 (0-0.5) % Neut % (Auto) 51.8 (45.5-73.1) % Lymph % (Auto) 37.1 (18.3-44.2) % [place] % (Auto) 7.6 (2.6-8.5) % Eos % (Auto) 2.3 (0-4.4) % Baso % (Auto) 0.8 (0.2-1.2) % Lymph # (Auto) 2.96 (0.9-3.2) K/mm3 [place] # (Auto) 0.6 (0.1-0.6) K/mm3 Eos # (Auto) 0.2 (0-0.3) K/mm3 Baso # (Auto) 0.1 (0.0-0.1) K/mm3 Abs Immat Gran (auto) 0.03 (0.00-0.031) K/mm3 Absolute Neuts (auto) 4.1 (1.3-6.7) K/mm3 Absolute Nucleated RBC 0.000 (0.0-0.012) K/mm3 Nucleated RBC % 0.0 (0.0-0.2) % Sodium 135 L (137-145) mmol/L Potassium 4.2 (3.4-5.0) mmol/L Chloride 104 (98-107) mmol/L Carbon Dioxide 24 (22-30) mmol/L Anion Gap 7 (4-12) mmol/L BUN 25 H (7-17) mg/dL Creatinine 0.97 (0.7-1.0) mg/dL Estim Creat Clear Calc 67 ml/min Estimated GFR 59 (59 - ) Glucose 90 (65-110) mg/dL Calcium 10.9 H (8.4-10.2) mg/dL Total Bilirubin 0.9 (0.2-1.3) mg/dL AST 25 (14-36) U/L ALT 21 (6-35) U/L Alkaline Phosphatase 80 (38-126) U/L Total Protein 7.6 (6.3-8.2) g/dL Albumin 4.3 (3.5-5.1) g/dL Urine Color Yellow (Yellow) Urine Appearance Clear (Clear) Urine pH 8.0 (5.0-9.0) Ur Specific [place] 1.022 (1.001-1.035) Urine Protein Trace (Negative) mg/dL Urine Glucose (UA) Negative (Negative) mg/dL Urine Ketones Negative (Negative) mg/dL Ur Blood (Man) Negative (Negative) Urine Nitrate Negative (Negative) Urine Bilirubin Negative (Negative) Urine Urobilinogen 0.2 (<2.0) mg/dL Leukocyte Esterase Rfl Trace H (Negative) OSCAR/UL Urine RBC 0-2 (0-2) /hpf Urine WBC 0-5 (0-3) /hpf Ur Squamous Epith Cells None seen (Few) /hpf Urine Bacteria 1+ H /hpf Urine Casts 0-2 Imaging Data Radiologist's impression: ITS Impressions Lumbar Spine CT 02/14/25 10:08 Impression: No acute abnormality. Hip/Pelvis X-Ray 02/14/25 10:11 Impression: No acute fracture or malalignment. Discharge Plan Discharge Clinical Impression: Strain of flexor muscle of left hip, Low back strain, Left lumbar radiculopathy Patient Disposition: Home Condition: Stable Instructions: Lower Back Exercises (ED) Additional Instructions: Please return to the emergency department if you develop severe pain that is not controlled by pain medications or if you are unable to walk because of pain or weakness. Return to the emergency department immediately if you develop fevers, loss of bowel or bladder control (dribbling of urine or having accidents you wouldn't normally have), inability to urinate, numbness of your genital or anal area, or weakness/numbness of your legs or arms as these could all be signs of a serious medical emergency. Patient Language: Belgian Prescriptions: New cyclobenzaprine 10 mg tablet 10 mg PO TID PRN (Reason: muscle spasm) Qty: 20 0RF naproxen 250 mg tablet 250 mg PO BID Qty: 14 0RF Follow-up/Referrals: Shruti De Dios, SET DECORATOR, FLOTATION TENDER-C [Primary Care Provider, Internal Medicine] - 1 Week
== END 2025-02-14 11:44 | disposition home or self-care (01) ==
PROVIDERS: Emergency Provider Emergency Medicine; PCP Clinical Nurse Specialist
DX: S76.012A Strain of muscle, fascia and tendon of left hip, initial encounter (principal); S39.012A Strain of muscle, fascia and tendon of lower back, initial encounter; M54.16 Radiculopathy, lumbar region; X58.XXXA Exposure to other specified factors, initial encounter
CPT/HCPCS: 36415; 72131; 73502; 80053; 81001; 85025; 96374; 99284; J1885